=== PATIENT | female | born 2000 | race Caucasian/White ===

== ENCOUNTER 2024-07-14 12:20 | Inpatient (IN) | payer BC, SELFPAY ==
[2024-07-14] VITALS (14 sets, daily range): BP systolic 113–174; BP diastolic 74–122; BMI 28.7; BMI 29.3
[2024-07-14 08:42] LABS: Glucose - Point of Care 596 mg/dl (70-99)
--- NOTE | 2024-07-14 09:10 | ED.GENMED ---
History of Present Illness
General
Chief Complaint: Blood Sugar Problem
Source: patient
Exam Limitations: none
Time Seen by Provider: 07/14/24 08:52
History of Present Illness
History of Present Illness:
24yoF with a history of type 1 diabetes with insulin pump in place presenting with her father for evaluation of hyperglycemia. Her glucose levels have been reading high since yesterday evening after eating dinner. She has given herself several
boluses of insulin but her glucose readings continue to be high. She started to have vomiting this morning and has had numerous episodes. She also had an episode of dizziness while in the bathroom. She had a small amount of ketones in her urine
this morning. She denies any fevers, recent illness, or dietary changes. Patient follows with [facility]. She was diagnosed with diabetes at the age of 10.
Past History
Past History
ED Past Medical History: IDDM
ED Past Surgical History: None
Patient has exhibited threatening behavior?: No
Social History
Tobacco: Non-smoker
Alcohol: None
Drug: None
Personal: Single
Living: with family
Employment: Other
Family History
Family History: Other
Phy Exam
General Physical Exam
General Presentation: mild distress
General Skin: warm and dry
General Habitus: normal
General Mental: alert
ENT Exam
ENT Exam: normocephalic
Cardiovascular Exam
Cardiovascular Exam: no murmur and tachycardia
Pulmonary Exam
Pulmonary Exam: lungs clear, no respiratory distress, no rales, no crackles and no rhonchi
Neurological Exam
Neurological Exam: alert
Kristie Coma Scale
Eye Opening: Spontaneous
Verbal Response: Oriented
Motor Response: Obeys Commands
GCS Total Score: 15
Skin Exam
Skin Exam: normal color and warm/dry
Psychiatric Exam
Psychiatric Exam: normal mood/affect
Course
Orders/Labs/Results
Orders:
Orders
07/14/24 08:57
Cardiac Monitoring- Treatment ONCE
Ondansetron Injectable [Zofran] 4 mg IV NOW STA
07/14/24 08:58
Electrocardiogram (*1) Urgent
Reason for Study: QTc Monitoring
EKG- Treatment ONCE
0.9% Sodium Chloride 1000 ml [Nss] 2,000 ml IV BOLUS
Test Result ONCE
07/14/24 09:12
Cardiac Monitoring- Treatment ONCE
07/14/24 09:22
B-Hydroxybutyrate Urgent
Complete Blood Count/With Diff Urgent
Comprehensive Metabolic Panel Urgent
Glycohemoglobin (HgbA1c) Urgent
HCG, Serum Qualitative Screen Urgent
Lipase Urgent
Magnesium Urgent
Venous Blood Gas Urgent
%Oxygen/Room Air: room air
07/14/24 09:29
Urinalysis Reflex To Culture Urgent
Date Specimen was Collected: 07/14/24
Time Specimen was Collected: 09:25
Urine Microscopic Reflex Cult Urgent
07/14/24 10:02
Bedside Glucose- Treatment Q1H
IV Insert/Care/Rem.- Treatment PRN
07/14/24 10:21
Diabetes Management by Nurse Practitioner Routine
Consulting Provider: Julieta Pope
Was provider already notified?: Yes
Reason for Consult: Insulin Management
07/14/24 10:22
0.9% Sodium Chloride 1000 ml [Nss] 1,000 ml IV BOLUS
07/14/24 10:34
Reg Insulin 100 Units/100 ml [Novolin R Insulin Infusion] 100 units in 100 ml IV NOW
07/14/24 11:00
KCl 20 Meq/0.9%Sodchl 1000 ml [NSS with KCL 20 MEQ] 20 meq in 1,000 ml IV 250 mls/hr
07/14/24 12:03
Admit/Transfer Patient As Directed
Co-Sign Provider:
Level of Care: Inpatient admission
Assign to:: ICU
Physician / Group: Hospitalists
Diagnosis: DKA
Reason for Hospitalization: DKA
Expected length of stay greater than two midnights?: Yes
ELOS- Estimated Length of Stay in days: 3
I certify the patient meets the requirements for IP care: Yes
PRN Pain Medication Management As Directed
May give lesser potent ordered pain med per pt: Yes
preference::
Protocol:: Medication orders for pain may be administered in a
manner that supports deferring to patient preference
when the pt is:
- Requesting an ordered lesser potent pain medication.
Least to most potent pain medications are defined
as: acetaminophen < NSAID < tramadol < opioids
(morphine, oxycodone, hydromorphone).
- Requesting a lesser dose of the same medication IF
ORDERED.
- Requesting a less intrusive route of administration
if both routes are prescribed by the provider (PO <
IV).
07/14/24 12:05
Code Status As Directed
Resuscitation Status: Full Code
07/14/24 12:30
Basic Metabolic Panel Q2H
07/14/24 12:58
Activity As Directed
Activity Level: Ambulate
Bedside Glucose Monitoring As Directed
Frequency: Q1H
Intake/ Output As Directed
Frequency: Per unit guidelines
Notify MD As Directed
Notify physician if: Nurse to contact provider when glucose reaches 250 to obtain orders for D5 0.45 NaCl
Vital Signs As Directed
Frequency: Per unit guidelines
DX Deep Vein Thrombosis Video Routine
07/14/24 18:00
Enoxaparin Sodium [Lovenox] 40 mg SC QPM
Abnormal Lab Results
07/14/24 07/14/24 07/14/24
08:39 09:22 09:29
WBC 14.4 H 10^3/uL
(4.8-10.8)
Abs Immat Gran (auto) 0.1 H 10^3/uL
(0-0.05)
Absolute Neuts (auto) 12.0 H 10^3/uL
(1.4-6.5)
Neutrophils % 83.1 H %
(42.2-75.2)
Lymphocytes % 11.4 L %
(20.5-51.1)
VBG pCO2 32 L mmHg
(35-48)
VBG pO2 148 H mmHg
(30-50)
VBG HCO3 17.3 L mmol/L
(22-27)
Sodium 132 L mmol/L
(135-145)
Chloride 96 L mmol/L
(98-107)
Carbon Dioxide 16 L mmol/L
(22-30)
BUN 18 H mg/dl
(7-17)
Glucose 651 H* mg/dl
(70-99)
Hemoglobin A1c 7.7 H %
(4.0-5.6)
Total Bilirubin 1.5 H mg/dl
(0.2-1.3)
Urine Ketones 1+ A
(Negative)
Ur Occult Blood Reflex 4+ A
(Negative)
Leukocyte Esterase Rfl Trace A
(Negative)
Urine RBC 50-60 A /HPF
(0-2)
Urine Bacteria (Reflex) Few A
(Negative)
Urine Glucose 3+ A
(Negative)
B-Hydroxybutyrate 2.20 H mmol/L
(0.02-0.27)
POC Glucose 596 H* mg/dl
(70-99)
07/14/24 07/14/24
10:58 12:15
WBC
Abs Immat Gran (auto)
Absolute Neuts (auto)
Neutrophils %
Lymphocytes %
VBG pCO2
VBG pO2
VBG HCO3
Sodium
Chloride
Carbon Dioxide
BUN
Glucose
Hemoglobin A1c
Total Bilirubin
Urine Ketones
Ur Occult Blood Reflex
Leukocyte Esterase Rfl
Urine RBC
Urine Bacteria (Reflex)
Urine Glucose
B-Hydroxybutyrate
POC Glucose 483 H* mg/dl 281 H mg/dl
(70-99) (70-99)
07/14/24 09:22
07/14/24 10:15
Vital Signs
Initial and Last Documented VS:
Initial Vital Signs
Temp Pulse Resp BP Pulse Ox
98.1 F 152 18 174/122 97
07/14/24 08:39 07/14/24 08:39 07/14/24 08:39 07/14/24 08:39 07/14/24 08:39
Last Documented Vital Signs
Temp Pulse Resp BP Pulse Ox
98.4 F 117 17 120/74 97
07/14/24 15:24 07/14/24 13:45 07/14/24 13:45 07/14/24 13:45 07/14/24 13:59
MDM/Problems Addressed
Differential Diagnosis Includes:
24yoF here with elevated blood sugar. Hx of T1DM. Glucose reading high since last night despite giving herself multiple boluses. Started with vomiting this morning. She is tachycardic to 152 in triage and hypertensive. She is non-toxic appearing.
Differential diagnosis includes but is not limited to: DKA, HHS, hyperglycemia, dehydration, electrolyte abnormality, CHALINO
Initial ED plan: Check abdominal labs, VBG, beta hydroxybutyrate, magnesium, HCG, and EKG. 2L IV NS and IV Zofran ordered.
*EKG
Interpreted by ED Provider?: Yes
EKG Intrepretation Date: 07/14/24
Heart Rate: 129
Rate: tachycardiac
Rhythm: sinus
[place]: normal axis
Interval: normal interval (QTc 418)
QRS Pattern: normal QRS
Ischemia: no ischemia
*Critical Care Note
Total Time (30-74mins, 75-104mins- exclusive of procedures): 35
Update Note
Update Note:
Labs reveal a leukocytosis with a white count of 14.4. Glucose 651. Bicarb 16, venous pH normal. Urine and serum ketones are elevated. Patient meeting criteria for DKA. IV insulin drip ordered per DKA protocol and she was admitted for further
evaluation management.
ED Attending Note
-
Portions of this chart may have been created with voice recognition software.� Occasional wrong word or��sound alike� substitutions may have occurred due to the inherent limitations of voice recognition software.
Discharge Plan
Departure
Patient Disposition: Admit
Date of Disposition: 07/14/24
Time of Disposition: 10:13
Presentation/result/management discussed w/ accepting MD/DO: Hospitalist
Discharge Problem:
DKA (diabetic ketoacidoses)
Interventions
Interventions:
*Risk Screen - Suicide Last Done: 07/14/24 08:39
*General Assessment Last Done: 07/14/24 08:39
*Neglect/Abuse Screening Last Done: 07/14/24 08:39
ED- Fall Risk Assessment Last Done: 07/14/24 13:31
*ED COVID-19 Vaccine History Last Done: 07/14/24 13:31
*Nursing Disposition Last Done: 07/14/24 13:31
ED- Neurological Assessment Last Done: 07/14/24 09:20
Discharge Date and Time
Discharge Date/Time: 07/14/24 13:32
[2024-07-14] MEDS: NSS 2000 IV (09:28)
[2024-07-14 09:32] LABS: % Basophils 0.5 % (0-2); % Eosinophils 0.2 % (0-6); % Immature Granulocytes 0.4 % (0-0.5); % Lymphocytes 11.4 % (20.5-51.1); % Monocytes 4.4 % (1.7-9.3); % Neutrophils 83.1 % (42.2-75.2); Absolute Basophils 0.1 10^3/uL (0-0.2); Absolute Immature Granulocytes 0.1 10^3/uL (0-0.05); Absolute Lymphocytes 1.6 10^3/uL (1.2-3.4); Absolute Monocytes 0.6 10^3/uL (0.1-0.6); Hematocrit 43.1 % (37.0-47.0); Hemoglobin 14.4 g/dL (12.0-16.0); Mean Corp Hgb Conc. 33.4 g/dL (33.0-37.0); Mean Corpuscular Hgb 29.7 pg (27.0-31.0); Mean Corpuscular Volume 88.9 fL (81.0-99.0); Mean Platelet Volume 9.6 fL (7.4-10.4); Nucleated Red Blood Cells % 0 %; Platelet Count 334 10^3/uL (130-400); Red Blood Cell Count 4.85 10^6/uL (4.20-5.40); Red Cell Dist. Width 11.8 % (11.5-14.5); White Blood Cell Count 14.4 10^3/uL (4.8-10.8)
[2024-07-14 09:34] LABS: Venous Blood Gas B.E. -7.3 mmol/L (-4 to +4); Venous Blood Gas HCO3 17.3 mmol/L (22-27); Venous Blood Gas O2 Sat % 99.9 %; Venous Blood Gas pCO2 32 mmHg (35-48); Venous Blood Gas pH 7.34 (7.32-7.43); Venous Blood Gas pO2 148 mmHg (30-50)
[2024-07-14 09:41] LABS: HCG, Serum Qualitative Screen Negative
[2024-07-14] MEDS: ZOFRAN 4 MG IV (09:43)
[2024-07-14 09:51] LABS: ALT (SGPT) 16 U/L (0-35); AST (SGOT) 17 U/L (14-36); Albumin 4.8 g/dl (3.5-5.0); Alkaline Phosphatase 86 U/L (38-126); Blood Urea Nitrogen 18 mg/dl (7-17); Calcium 9.6 mg/dl (8.4-10.2); Carbon Dioxide 16 mmol/L (22-30); Chloride 96 mmol/L (98-107); Estimated Creatinine Clearance 81 ml/min; Lipase 118 U/L (23-300); Magnesium 1.8 mg/dl (1.6-2.3); Potassium 4.7 mmol/L (3.5-5.1); Sodium 132 mmol/L (135-145); Total Bilirubin 1.5 mg/dl (0.2-1.3); Total Protein 7.8 g/dl (6.3-8.2); eGFR > 60.00
[2024-07-14 10:01] LABS: Glucose 651 mg/dl (70-99)
[2024-07-14 10:23] LABS: Urine Albumin Trace (Neg - Trace); Urine Bilirubin Negative (Negative); Urine Character Slightly Cloudy (Clear); Urine Color Straw; Urine Glucose 3+ (Negative); Urine Ketone 1+ (Negative); Urine Leukocyte Trace (Negative); Urine Nitrite Negative (Negative); Urine Occult Blood 4+ (Negative); Urine Urobilinogen Negative (Neg - 1+)
[2024-07-14 10:54] LABS: Urine Bacteria Few (Negative); Urine Red Blood Cell 50-60 /HPF (0-2); Urine White Cell 0-2 /HPF (0-5)
[2024-07-14] MEDS: NOVOLIN R INSULIN INFUSION 100 IV ×2 (10:58→12:24)
[2024-07-14 10:59] LABS: Glucose - Point of Care 483 mg/dl (70-99)
--- NOTE | 2024-07-14 11:21 | HPS.HSE ---
Family Physician
-
Family Physician: Paras Ybarra MD
Chief Complaint
-
Hyperglycemia
History of Present Illness
Ms. Jossy Pope is a 24yoF pmh type 1 DM, vitiligo, PCOS, endometriosis admitted for hyperglycemia. Her glucose levels were elevated after dinner last night. She took several insulin boluses of 10u each, but her glucose has remained high. It was 444
this morning by fingerstick. She developed N/V/dizziness. Did an [place] urine dipstick positive for ketones. After which, her glucose juan alberto to 584. Pt reports soreness, skin tightness, and polyuria. HbA1c in May was 7.9.
Pt treated for a presumed UTI for the past three days. Pt endorsed dysuria, increased urinary frequency, foul odor, denies hematuria. Pt treated based on sx, not on urinalysis.
Pt has PTSD/anxiety regarding IV's and blood draws.
Medical History
Past Medical History
Past Medical History: Reports IDDM, Psychiatric (PTSD/anxiety) and Other (vitiligo, PCOS, endometriosis)
Past Surgical History: Reports None
Social History
Tobacco: Non-smoker
Alcohol: Occasional (1 drink per week)
Drug: None
Family History
Family History: Diabetes (type 2)
Allergies / Home Medications
Allergies reflects when Allergies were last updated in [employer].
Home Medications with original date entered in [employer]
Allergy/Medication List:
Allergies
Allergy/AdvReac Type Severity Reaction Status Date / Time
No Known Allergies Allergy Verified 07/14/24 08:38
Home Medications
Insulin Pump [Patient's Own Insulin Pump:] 0 ea SC . PROGRAMED 07/22/19
Lactobac no.2-Bifidobac no.1-S. thermo 112.5 billion cell capsule (Visbiome) 1 cap PO DAILY 07/14/24
levonorgestrel 0.15 mg-ethinyl estradiol 30 mcg tablets,3 mos pack(91) 1 tab PO DAILY 07/14/24
metronidazole 500 mg tablet 500 mg PO BID 07/14/24
Review of Systems
-
History Source: Patient and Family
Constitutional: Reports No Symptoms
EENT: Reports No Symptoms
Respiratory: Reports No Symptoms
Cardiac: Reports No Symptoms
Abdomen/GI: Reports Nausea and Vomiting
: Reports Dysuria and Frequency
Musculoskeletal: Reports No Symptoms
Skin: Reports Other (tightness)
Neurological: Reports Dizzy
Endocrine: Reports Polyuria
Psych: Reports Anxiety
Physical Exam
Vital Signs
Vital Signs
Temp Pulse Resp BP Pulse Ox
98.1 F 125 22 121/96 97
07/14/24 08:39 07/14/24 10:45 07/14/24 10:45 07/14/24 10:00 07/14/24 10:45
Physical Exam
General: Well Developed, Well Nourished and Conversant
HEENT: NormoCephalic, Anicteric and Atraumatic
Respiratory: Clear
Cardiac: S1/S2, Regular Rhythm and Tachycardia
GI: Soft, Non Tender, Non Distended and Normal Bowel Sounds
Genito-urinary: No costovertebral tender
Musculoskeletal: No Clubbing, No Cyanosis and No Edema
Skin: Warm, Dry and Lesions (scratch on R ant chest wall, from taking off fake nails)
Neuro: AO x 3
Psych: Anxious
Laboratory Results
-
07/14/24 09:22
Laboratory Results
Total Bilirubin 1.5 mg/dl (0.2-1.3) H 07/14/24 09:22
AST 17 U/L (14-36) 07/14/24 09:22
ALT 16 U/L (0-35) 07/14/24 09:22
Alkaline Phosphatase 86 U/L (38-126) 07/14/24 09:22
Lipase 118 U/L (23-300) 07/14/24 09:22
Impression/Plan
-
IMPRESSION:
DKA
Type 1 DM
Vitiligo
PCOS
Endometriosis
PLAN:
DKA
Type 1 DM
- insulin drip
- q2h bmp
- q1h fingerstick glucose
- NPO
- sodium bicarbonate
- potassium repletion
- AG 20
PCOS
Endometriosis
- hold OCP until pt able to tolerate PO
Vitiligo
- stable
PTSD/Anxiety
- regarding blood draws and IV insertions
UTI
- urinalysis - ketonuria, glucosuria, UTI
- hold flagyl since NPO
- start rocephin iv
Diet: NPO
DVT ppx: lovenox
Code status: FULL CODE
--- NOTE | 2024-07-14 11:24 | PN.DE.MGMTRT ---
Insulin Management
- -
07/14/2024: Diabetes management Consult
24 year old female, w/PMH: Vitiligo, PCOS, endometriosis, PTSD, Anxiety and T1DM, was diagnosed with diabetes at the age of 10, states this is her 1st episode of DKA since dx with diabetes. Routinely follows with [facility] Dr. Crowley.
Pt presented to the ED with her father for evaluation of hyperglycemia. Uses Omnipod pump with NovoLog insulin. Was started on Wegovy one and half years ago for weight management and PCOS. She uses a Dexcom G6 for glucose monitoring at home. States
her glucose levels started trending up yesterday evening after eating dinner. She changed her POD yesterday evening and administered several boluses of insulin but her glucose readings continued to be high. She started to have vomiting this morning
and has had numerous episodes, associated with small amounts of ketones in her urine this morning. She denies any fevers, recent illness, or dietary changes.
Pt is awake, alert, oriented, sitting up in bed, offers no complaints. Mom- Renu (Nurse) and Dad- Will at bedside, pleasant and involved with pt's care.
Pt states she is dealing with a great deal of stress in her life.
She is noted for DKA, AG = 20, Glucose on admission was 651(V). Cr 0.9, No current A1C, last A1C was 7.9% in May 2024.
Pt has been started on DKA protocol. Current glucose 281. Will cont to follow and assess for readiness to transition off the drip when GAP has closed.
Update A1C, will add to AM labs.
Diabetes History
- -
Type of Diabetes: 1
Pre-Admission Diabetes Regimen
07/14/24
09:22
Creatinine 0.9
Insulin Pump Settings
IP Diabetes Regimen
07/14/24 07/14/24 07/14/24
08:39 09:22 10:58
Glucose 651 H*
POC Glucose 596 H* 483 H*
Patient Education
[2024-07-14 12:17] LABS: Glucose - Point of Care 281 mg/dl (70-99)
[2024-07-14] MEDS: NSS with KCL 20 MEQ 1000 IV (12:17)
[2024-07-14] MEDS: NSS 1000 IV ×3 (12:25→23:36)
[2024-07-14 12:52] LABS: Blood Urea Nitrogen 14 mg/dl (7-17); Calcium 8.8 mg/dl (8.4-10.2); Carbon Dioxide 20 mmol/L (22-30); Chloride 107 mmol/L (98-107); Estimated Creatinine Clearance 92 ml/min; Glucose 304 mg/dl (70-99); Potassium 4.5 mmol/L (3.5-5.1); Sodium 139 mmol/L (135-145); eGFR > 60.00
--- NOTE | 2024-07-14 12:55 | W.PN.UPDATE ---
Update Note
Progress Note Update
I personally performed a history and physical exam of the patient and discussed management with the resident. I reviewed the resident's note and agree with the documented findings and plan of care HPI/CC.
24-year-old female who presents with a chief complaint of hyperglycemia. She has had elevated blood glucoses over the last 24 hours. She is also had fatigue as if she did an extreme workout (as per her words). This morning she had some vomiting.
She uses an insulin pump but has required multiple extra boluses of insulin over the last 24 hours.
Gen: NAD, AAOx3.
Eyes: EOMI, PERRLA, no scleral icterus.
Neck: supple.
CV: tachycardia, +S1/S2, no m/r/g.
Resp: CTAB, no rales, wheezes, or rhonchi.
Abd: +BS, soft, NT, ND
Skin: No rashes.
Neuro: CN 2-12 intact, non-focal.
Psych: Normal mood and affect.
DKA:
-possibly due to UTI
-AG 20
-start insulin gtt
-3L NS bolus followed by high flow rate maintenance fluids
-BMP Q4H
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
-NPO for now
Sepsis due to UTI:
-IVFs
-Rocephin
-follow BCxs/UCx
FULL/Lovenox
Total critical care time spent = 37 min
--- NOTE | 2024-07-14 13:30 | PTCARENOTE ---
Received pt from the ED with parents present, 0.9nss bolus infusing via right [id number] protective catheter, Insulin @ 3.3units/hr via same site. Lungs CTA. C/O hunger and asking if she is allowed to eat. SHe understands orders will be checked. She
understands the plan of care regarding serial BMP's to assess for anion gap. Parents were also informed of the plan of care.
[2024-07-14 13:43] LABS: Glucose - Point of Care 190 mg/dl (70-99)
--- NOTE | 2024-07-14 13:50 | CON.INTV ---
Addendum entered and electronically signed by Nuzhat Amaya DO 07/14/24 15:19:
Transferred to IMU, we will sign off at this time.
Please call with questions
Original Note:
Consultation
Consultation Request
Date/Time Consultation Requested: 07/14/24
Date/Time Consultation Performed: 07/14/24
Performing Provider: Jose Luis
Reason for Consultation: ICU
Medical History
-
History of Present Illness:
Patient is a 24 year old F with past history of type 1 DM, vitiligo, PCOS, endometriosis admitted for hyperglycemia. Glucose levels were elevated after dinner day [employer]. She took 4 doses of 10 units of insulin without benefit. It was reportedly 444
day of admission. She developed N/V/dizziness. Did an OTC urine dipstick positive for ketones. After which, her glucose juan alberto to 584. Pt reports soreness, skin tightness, and polyuria. HbA1c in May was 7.9.
Pt treated for a presumed UTI for the past three days. Pt endorsed dysuria, increased urinary frequency, foul odor.
Has a past history of UTI, E. Coli.
Admitted to ICU for DKA management on insulin gtt.
Past Medical History
Past Medical History: Other (see list below)
Social History
Tobacco: Non-smoker
Alcohol: None
Drug: None
Family History
Family History: Reviewed & Not Pertinent
Allergies / Home Medications
Allergies
Allergy/AdvReac Type Severity Reaction Status Date / Time
No Known Allergies Allergy Verified 07/14/24 08:38
Home Medications
�Medication �Instructions �Recorded �Confirmed �Last Taken �Type
Insulin Pump [Patient's Own 0 ea SC . PROGRAMED 07/22/19 07/14/24 Unknown History
Insulin Pump:]
Lactobac no.2-Bifidobac no.1-S. 1 cap PO DAILY 07/14/24 07/14/24 Unknown History
thermo 112.5 billion cell capsule
(Visbiome)
levonorgestrel 0.15 mg-ethinyl 1 tab PO DAILY 07/14/24 07/14/24 07/14/24 History
estradiol 30 mcg tablets,3 mos
pack(91)
metronidazole 500 mg tablet 500 mg PO BID 07/14/24 07/14/24 07/14/24 History
Review of Systems
-
History Source: Patient
All other systems: Negative unless noted
Vitals / Labs / Diagnostic Testing
Vital Signs
Temp Pulse Resp BP Pulse Ox
98.1 F 121 19 121/96 97
07/14/24 08:39 07/14/24 13:15 07/14/24 13:15 07/14/24 10:00 07/14/24 13:00
Lab Data
07/14/24 09:22
Diagnostic Testing:
Physical Exam
-
HEENT: Normocephalic, Anicteric and Moist Mucous Membranes
Cardiovascular: S1/S2 and Regular Rhythm
Respiratory: Clear and Non-Labored Respirations
GI: Soft, Non Distended and Non Tender
Neurology: Awake, Alert, Oriented and No Motor Deficits
Skin: Warm, Dry and Good Color
General: Comfortable and Other (NAD)
Assessment
-
Patient is a 24 year old F with past history of type 1 DM on insulin pump, vitiligo, PCOS, endometriosis admitted for hyperglycemia. Glucose levels were elevated after dinner day [employer]. She took 4 doses of 10 units of insulin without benefit. It was
reportedly 444 day of admission. She developed N/V/dizziness. Pt treated for a presumed UTI for the past three days. Has a past history of UTI, E. Coli. She has never been admitted for DKA in past, she is admitted to ICU for insulin gtt.
DKA
AGMA
UTI
Conditions present [employer]
H/o PNA 01/18/2019
H/o pyelonephritis
E coli bacteremia/UTI
Diabetes with insulin pump
History of vitiligo
History of asthma
PTSD/anxiety
PCOS/endometriosis
Alcohol: Occasional (1 drink per week)
Plan
DKA, admitting BS elevated >500, AG 20 now 12
Started on insulin drip, can wean today following protocol, start D5 IVFs
Can transition back to home insulin pump
Consult diabetic nurse for insulin recommendations
Can restart diet once able to bridge
H/o poorly controlled diabetes, hopeful transition to home meds
HbA1c 7.7
Admits triggers include UTI
Diet transition following DKA protocol
GI ppx if indicated
Hemodynamically stable, not requiring pressors.
No prior h/o cardiac disease
Oxygen needs: Stable on RA
No prior h/o pulmonary disease
Creat at baseline, follow UO
Acid/base status: AGMA 2/2 DKA, follow until AG <12
UTI history, urine culture pending
On CTX IV, can complete PO course when ready for discharge
Follow fever trend, WBC count.
DVT ppx SCDs
Given rapid improvement on gtt, can transition to pump again
Discharge planning once able to achieve control on home regiment
Diagnostic Data
Chest X-Ray: 01/24/19- Improved aeration of both lower lungs with findings suggestion of residual atelectasis on the right and probable residual mild bibasilar pneumonia.
Mild cardiomegaly. Stable.
CT Scan: 07/22/19 AP - 1. Mild amount of MEDULLARY NEPHROCALCINOSIS in both kidneys which has increased since 01/17/2019.
2. No CT evidence for ureteral calculus or hydroureteronephrosis.
Echo:
PFT's:
Reports and relevant images were personally reviewed.
Critical Care time 52 mins -- The patient is admitted for acute critical illness for the treatment of vital organ failure and/or prevention of further life-threatening conditions. Total care includes time spent in review of history, physical exam,
medications, hemodynamic/ventilator parameters, laboratory data, imaging and discussion with house staff, pharmacy, respiratory therapy, cardiac care unit nurse, and nursing.
[2024-07-14 14:05] LABS: Glycohemoglobin (HgbA1c) 7.7 % (4.0-5.6)
[2024-07-14] MEDS: D5/0.45%NSS with KCL 20 MEQ 1000 IV (14:16)
[2024-07-14] MEDS: ROCEPHIN 1000 MG IV (14:17)
[2024-07-14] MEDS: STERILE WATER FOR INJECTION 10 ML IV (14:17)
[2024-07-14 14:41] LABS: Glucose - Point of Care 172 mg/dl (70-99)
[2024-07-14 14:57] LABS: Blood Urea Nitrogen 12 mg/dl (7-17); Carbon Dioxide 19 mmol/L (22-30); Chloride 110 mmol/L (98-107); Estimated Creatinine Clearance 106 ml/min; Glucose 188 mg/dl (70-99); Potassium 4.2 mmol/L (3.5-5.1); Sodium 138 mmol/L (135-145); eGFR > 60.00
[2024-07-14] MEDS: NON-FORMULARY ITEM 1 UNIT PO (14:59)
[2024-07-14] MEDS: NON-FORMULARY ITEM 1 TAB PO (14:59)
--- NOTE | 2024-07-14 15:17 | PTCARENOTE ---
Elaine Guillen notified of pt's anxiety when obtaining Blood cultures and that 1 set was obtained. He stated 1 set is ok and that he downgraded her to IMU.
[2024-07-14 15:41] LABS: Glucose - Point of Care 195 mg/dl (70-99)
[2024-07-14 16:40] LABS: Glucose - Point of Care 174 mg/dl (70-99)
--- NOTE | 2024-07-14 17:29 | PTCARENOTE ---
Pt AAOx3. Denies pain or nausea. Insulin gtt d/c'd at 1530. Pt placed her own insulin pump at that time. Per pt, placed on Smart PurpleTeal with carb ratio 1-4 and blood sugar 1-50. IVF changed to NSS per order. Ambulates to bathroom with steady
gait. Pt and her mother were updated at bedside on meds and labs.
[2024-07-14 21:20] LABS: Glucose - Point of Care 195 mg/dl (70-99)
--- NOTE | 2024-07-14 23:28 | PTCARENOTE ---
Assumed care of pt at 1900. Pt is A/O x4, pleasant and cooperative with care. Pt remains off insulin drip, currently on her own insulin pump. At start of shift pt rang call lynne with concerns that her blood sugar was trending up, had decided to put
herself on a basal rate of insulin to bring blood sugar back down so she could avoid going on insulin drip again. HS Accuchek done, 195, pt's blood sugar per her own device was reading 180. Upon checking back in with patient she decided to continue
with a basal rate of insulin instead of the Smart IQ, stating that the Smart IQ 'doesn't seem to be working right'. Pt and her mother are well-versed in the use of her insulin pump and blood sugar monitoring and she has been keeping nursing staff up
to date. SR 90s/ST low 100s on monitor. See nursing shift assessment flowsheet for full physical assessment details. Pt is currently IMU level of care. Mother in room, staying the night.
[2024-07-15] VITALS (9 sets, daily range): BP systolic 121–151; BP diastolic 81–96
[2024-07-15 05:55] LABS: % Basophils 0.5 % (0-2); % Eosinophils 1.7 % (0-6); % Immature Granulocytes 0.3 % (0-0.5); % Lymphocytes 38.8 % (20.5-51.1); % Monocytes 6.3 % (1.7-9.3); % Neutrophils 52.4 % (42.2-75.2); Absolute Eosinophils 0.2 10^3/uL (0-0.7); Absolute Lymphocytes 3.3 10^3/uL (1.2-3.4); Absolute Monocytes 0.5 10^3/uL (0.1-0.6); Absolute Neutrophils 4.5 10^3/uL (1.4-6.5); Hematocrit 37.9 % (37.0-47.0); Hemoglobin 12.5 g/dL (12.0-16.0); Mean Corpuscular Hgb 29.3 pg (27.0-31.0); Mean Corpuscular Volume 88.8 fL (81.0-99.0); Mean Platelet Volume 9.4 fL (7.4-10.4); Nucleated Red Blood Cells % 0 %; Platelet Count 280 10^3/uL (130-400); Red Blood Cell Count 4.27 10^6/uL (4.20-5.40); Red Cell Dist. Width 11.9 % (11.5-14.5); White Blood Cell Count 8.6 10^3/uL (4.8-10.8)
[2024-07-15] MEDS: NSS IV (06:07)
[2024-07-15 06:24] LABS: Blood Urea Nitrogen 11 mg/dl (7-17); Calcium 8.6 mg/dl (8.4-10.2); Carbon Dioxide 21 mmol/L (22-30); Chloride 106 mmol/L (98-107); Estimated Creatinine Clearance 125 ml/min; Glucose 107 mg/dl (70-99); Potassium 4.2 mmol/L (3.5-5.1); Sodium 134 mmol/L (135-145); eGFR > 60.00
[2024-07-15 07:57] LABS: Glucose - Point of Care 129 mg/dl (70-99)
--- NOTE | 2024-07-15 08:47 | W.PN.HOSP.TC ---
Today's Communication/Plan
-
.
Assessment / Plan
Assessment / Plan
IMPRESSION:
DKA
Type 1 DM
Vitiligo
PCOS
Endometriosis
PLAN:
DKA
Type 1 DM
- DKA resolved
- insulin pump
- sodium bicarbonate
- potassium repletion
UTI
- urinalysis - ketonuria, glucosuria, UTI
- rocephin iv
- ucx, bcx pending
PCOS
Endometriosis
- cont home OCP
Vitiligo
- stable
PTSD/Anxiety
- regarding blood draws and IV insertions
Diet: diabetic
DVT ppx: lovenox
Code status: FULL CODE
Anticipated Discharge: 24 - 48 hours
Subjective/Interval History
-
Date of Service: July 15, 2024
Ms. Jossy Pope is a 24yoF pmh type 1 DM, vitiligo, PCOS, endometriosis admitted for hyperglycemia. Transferred to IMU.
Objective Data
-
Labs:
Laboratory Results
07/15/24
05:33
WBC 8.6
Hgb 12.5
Hct 37.9
Plt Count 280
Sodium 134 L
Potassium 4.2
Chloride 106
Carbon Dioxide 21 L
BUN 11
Creatinine 0.6
Glucose 107 H
Calcium 8.6
Vital Signs:
Vital Signs
Temp Pulse Resp BP Pulse Ox
98.1 F 73 15 125/89 97
07/15/24 07:19 07/15/24 05:00 07/15/24 05:00 07/15/24 04:00 07/15/24 05:00
I&O
07/14/24 07/15/24 07/16/24
06:59 06:59 06:59
Intake Total 2539.3 / 2538.3
Output Total 400 / 400
Balance 2138.3 / 2138.3
Review of Systems
-
History Source: Patient
Constitutional: Reports No Symptoms
EENT: Reports No Symptoms Reported
Respiratory: Reports No Symptoms
Cardiac: Reports No Symptoms
Abdomen/GI: Reports No Symptoms
Genitourinary: Reports No Symptoms
Musculoskeletal: Reports No Symptoms
Skin: Reports No Symptoms
Neuro: Reports No Symptoms
Endocrine: Reports No Symptoms
Physical Exam
-
General: Well Developed, Well Nourished and No Apparent Distress
HEENT: Normocephalic, Atraumatic and Anicteric
Respiratory: Clear to Auscultation
Cardiac: Regular Rhythm and S1/S2
GI: Soft, Nontender, Nondistended and Normal Bowel Sounds
Genito-urinary: No Costovertebral Tender
Musculoskeletal: No Clubbing, No Cyanosis and No Edema
Skin: Warm and Dry
Neuro: AO x 3
Psych: Calm
[2024-07-15] MEDS: NON-FORMULARY ITEM 1 UNIT PO (10:17)
[2024-07-15] MEDS: NON-FORMULARY ITEM 1 TAB PO (10:17)
[2024-07-15 11:51] LABS: Glucose - Point of Care 202 mg/dl (70-99)
--- NOTE | 2024-07-15 11:52 | W.PN.UPDATE ---
Update Note
Progress Note Update
I saw and evaluated the patient. I reviewed the resident�s note and agree with findings and plan as documented in the resident�s note.
Gen: NAD, AAOx3.
Eyes: EOMI, PERRLA, no scleral icterus.
Neck: supple.
CV: RRR, +S1/S2, no m/r/g.
Resp: remains CTAB, no rales, wheezes, or rhonchi.
Skin: No rashes.
Neuro: remains CN 2-12 intact, non-focal.
Psych: Normal mood and affect.
DKA:
-possibly due to UTI in addition to insulin pump malfunction
-s/p 3L NS bolus followed by high flow rate maintenance fluids
-AG 20, now closed with insulin gtt, insulin pump restarted
Sepsis due to UTI:
-stop IVFs
-Rocephin
-follow BCxs/UCx
Pt's mother updated at bedside.
FULL/Lovenox
[2024-07-15] MEDS: STERILE WATER FOR INJECTION 10 ML IV (14:23)
[2024-07-15] MEDS: ROCEPHIN 1000 MG IV (14:23)
--- NOTE | 2024-07-15 14:31 | PTCARENOTE ---
Pt managing own insulin pump. IVF d/c per order. Downgraded to medsurg. No available beds at this time.
[2024-07-15 17:38] LABS: Glucose - Point of Care 207 mg/dl (70-99)
[2024-07-15 21:48] LABS: Glucose - Point of Care 170 mg/dl (70-99)
--- NOTE | 2024-07-16 00:11 | PTCARENOTE ---
Assumed care of pt at 1900. Pt is A/O x4, pleasant and cooperative with care. Independent in room. Insulin pump in place and pt controlling her insulin administration. See nursing shift assessment flowsheet for full physical assessment details.
[2024-07-16 05:27] LABS: Hematocrit 36.3 % (37.0-47.0); Hemoglobin 12.4 g/dL (12.0-16.0); Mean Corp Hgb Conc. 34.2 g/dL (33.0-37.0); Mean Corpuscular Hgb 29.7 pg (27.0-31.0); Mean Corpuscular Volume 86.8 fL (81.0-99.0); Mean Platelet Volume 9.8 fL (7.4-10.4); Platelet Count 262 10^3/uL (130-400); Red Blood Cell Count 4.18 10^6/uL (4.20-5.40); Red Cell Dist. Width 11.5 % (11.5-14.5); White Blood Cell Count 7.3 10^3/uL (4.8-10.8)
[2024-07-16 07:12] LABS: Blood Urea Nitrogen 9 mg/dl (7-17); Calcium 8.8 mg/dl (8.4-10.2); Carbon Dioxide 20 mmol/L (22-30); Chloride 105 mmol/L (98-107); Estimated Creatinine Clearance 125 ml/min; Glucose 125 mg/dl (70-99); Potassium 3.8 mmol/L (3.5-5.1); Sodium 136 mmol/L (135-145); eGFR > 60.00
--- NOTE | 2024-07-16 07:46 | W.PN.HOSP.TC ---
Today's Communication/Plan
-
dc today
Assessment / Plan
Assessment / Plan
IMPRESSION:
DKA
Type 1 DM
Vitiligo
PCOS
Endometriosis
PLAN:
DKA
Type 1 DM
- DKA resolved
- insulin pump
- sodium bicarbonate
- potassium repletion
UTI
- urinalysis - ketonuria, glucosuria, UTI
- 2 days of rocephin iv
- ucx - mixed mckenna
- blood cx: no growth at 24h
- macrobid
PCOS
Endometriosis
- cont home OCP
Vitiligo
- stable
PTSD/Anxiety
- regarding blood draws and IV insertions
Diet: diabetic
DVT ppx: lovenox
Code status: FULL CODE
Anticipated Discharge: Today
Subjective/Interval History
-
Date of Service: July 16, 2024
Ms. Jossy Pope is a 24yoF pmh type 1 DM, vitiligo, PCOS, endometriosis admitted for hyperglycemia. No acute overnight events.
Objective Data
-
Labs:
Laboratory Results
07/16/24 07/16/24
05:08 06:10
WBC 7.3
Hgb 12.4
Hct 36.3 L
Plt Count 262
Sodium Cancelled 136
Potassium Cancelled 3.8
Chloride Cancelled 105
Carbon Dioxide Cancelled 20 L
BUN Cancelled 9
Creatinine Cancelled 0.6
Glucose Cancelled 125 H
Calcium Cancelled 8.8
Vital Signs:
Vital Signs
Temp Pulse Resp BP Pulse Ox
98.3 F 91 22 128/90 97
07/16/24 07:36 07/15/24 20:59 07/15/24 14:19 07/15/24 20:56 07/15/24 20:59
I&O
07/15/24 07/16/24 07/17/24
06:59 06:59 06:59
Intake Total 2539.3 / 2539.3 480 / 480
Output Total 400 / 400
Balance 2139.3 / 2139.3 480 / 480
Review of Systems
-
History Source: Patient
Constitutional: Reports No Symptoms
EENT: Reports No Symptoms Reported
Respiratory: Reports No Symptoms
Cardiac: Reports No Symptoms
Abdomen/GI: Reports No Symptoms
Genitourinary: Reports No Symptoms
Musculoskeletal: Reports No Symptoms
Skin: Reports No Symptoms
Neuro: Reports No Symptoms
Endocrine: Reports No Symptoms
Allergy / Immunology: Reports No Symptoms
Physical Exam
-
General: Well Developed, Well Nourished and No Apparent Distress
HEENT: Normocephalic, Atraumatic and Anicteric
Respiratory: Clear to Auscultation
Cardiac: Regular Rhythm and S1/S2
GI: Soft, Nontender, Nondistended and Normal Bowel Sounds
Genito-urinary: No Costovertebral Tender
Musculoskeletal: No Clubbing, No Cyanosis and No Edema
Skin: Warm and Dry
Neuro: AO x 3
Psych: Calm
[2024-07-16 07:53] VITALS: BP 130/96
[2024-07-16] MEDS: NON-FORMULARY ITEM 1 TAB PO (07:53)
[2024-07-16] MEDS: NON-FORMULARY ITEM 1 UNIT PO (07:53)
[2024-07-16] MEDS: MACROBID 100 MG PO (07:55)
[2024-07-16 08:04] LABS: Glucose - Point of Care 154 mg/dl (70-99)
--- NOTE | 2024-07-16 08:46 | W.PN.UPDATE ---
Update Note
Progress Note Update
I saw and evaluated the patient. I reviewed the resident�s note and agree with findings and plan as documented in the resident�s note.
Pt seen and examined with nurse Bryanna Jorge present at bedside:
Gen: remains NAD, AAOx3.
Eyes: EOMI, PERRLA, no scleral icterus.
Neck: supple.
CV: remains RRR, +S1/S2, no m/r/g.
Resp: CTAB anteriorly, no rales, wheezes, or rhonchi.
Skin: No rashes.
Neuro: CN 2-12 intact, non-focal.
Psych: Normal mood and affect.
07/14/24 15:19 Blood/Venous Blood Culture - Preliminary
No Growth in 24 hours- Final report to follow
07/14/24 15:37 Urine Urine Culture - Final
DKA:
-possibly due to UTI in addition to insulin pump malfunction
-s/p 3L NS bolus followed by high flow rate maintenance fluids
-AG 20, now closed with insulin gtt, insulin pump restarted
Sepsis due to UTI:
-s/p IVFs
-has been on IV Rocephin. UCx contaminated, BCx NGTD
-transition to Macrobid to complete 10 days of abx
-recommend outpt ID eval for recurrent UTIs
FULL/Lovenox
Total time spent on d/c = 31 min. This included today's physical exam, progress note, review of laboratory and diagnostic data, preparation of discharge documents and prescriptions, and discussions about the pt's hospital course and discharge plan
with the patient and other medical i d sales involved in the patient's care.
--- NOTE | 2024-07-16 08:58 | W.DCSUMMARY ---
Discharge Summary
Discharge Data
Date of Admission: 07/14/24
Date of Discharge: 07/16/24
-
Pending Results: Yes
Additional Pending Results:
Blood culture
Hospital Course
Discharging Physician : Dr. Georgina Vasquez, Dr. Jesus Henry
Disposition : home
Primary care physician : Paras Ybarra MD
Principal Discharge diagnosis : DKA
Chronic Discharge diagnosis : type 1 DM, vitiligo, PCOS, endometriosis
Hospital Course :
Admitted 07/14 for hyperglycemia. Her glucose levels were elevated after dinner the night before admission. She took several insulin boluses of 10u each, but her glucose has remained high. It was 444 this morning by fingerstick. She developed
N/V/dizziness. Did an OTC urine dipstick positive for ketones. After which, her glucose juan alberto to 584. Pt reports soreness, skin tightness, and polyuria. HbA1c in May was 7.9. Anion gap 20. Pt treated for a presumed UTI for three days prior to
admission. Pt endorsed dysuria, increased urinary frequency, foul odor, denies hematuria. Pt treated based on sx, not on urinalysis. She was treated with an insulin drip, sodium bicarbonate, and potassium until her blood glucose was <200. Anion gap
closed to <12. Pt then treated with subcutaneous insulin from her insulin pump. Urine culture positive for mixed mckenna. Blood culture had no growth at 24h. Pt hemodynamically stable, afebrile.
Important imaging findings : n/a
Procedure findings : n/a
Discharge Plan
-
Patient Disposition: Home (Routine Discharge)
Discharge Diagnosis/Procedures: Diabetic Ketoacidosis, sepsis due to acute urinary tract infection
Condition: Good
Diet: Diabetic, Carb Controlled
Activity: No restrictions
Driving Restrictions: As prior to admission
Instructions: Diabetes and diet, Diabetic ketoacidosis - Discharge instructions
Referrals:
Paras Ybarra MD [Family Provider] - in less than 1 week
Patience Pierce MD [Active] - in one to two weeks (recurrent UTIs)
Prescriptions:
New
nitrofurantoin macrocrystal 100 mg capsule
100 mg PO BID 8 Days Qty: 16 0RF
Continued
Insulin Pump [Patient's Own Insulin Pump:] 1 UNITS Pump.Resvr
0 ea SC . PROGRAMED
Rx Instructions:
Insulin Lispro
levonorgestrel-ethinyl estrad 0.15 mg-30 mcg (91) tablets,dose pack,3 month
1 tab PO DAILY
Visbiome 112.5 billion cell Capsule
1 cap PO DAILY
Discontinued
metronidazole 500 mg Tablet
500 mg PO BID
Rx Instructions:
start on 07/11/24 for 7 days
Discharge Orders:
Discharge Patient (As Directed); Ordered 07/16/24
Ordered By: Jesus Henry
Discharge Date and Time
Discharge Date/Time: 07/16/24 09:32
Print Language: MAURITANIAN
--- NOTE | 2024-07-16 09:29 | PTCARENOTE ---
Pt AAOx3. Blood sugars controlled via pt's own insulin pump. Reviewed discharge instructions, meds and follow up visits with pt and mom. Given educations packets on DM, DKA and new antibiotic. IV d/c'd. Discharged to home with mom.
--- NOTE | 2024-07-16 10:16 | CM ---
Patient with Hx IDDM here with DKA, UTI.
Notified by nurse Bryanna that patient was already discharged today - not able to be seen by CM.
Per nurse, the patient has her own insulin pump and Dexcom, and there were no issues that would require additional home support from VN.
Per nurse her mother provided transport home today.
== END 2024-07-16 09:32 | disposition home or self-care (01) | DRG 871 ==
LOC: ICU 12:20
PROVIDERS: Physician Assistant; ADMITTING PHYSICIAN Internal Medicine; CONSULT PHYSICIAN Internal Medicine; EMERGENCY PHYSICIAN Emergency Medicine; FAMILY PHYSICIAN Family Medicine
DX: A41.9 Sepsis, unspecified organism (principal); E10.10 Type 1 diabetes mellitus with ketoacidosis without coma; N39.0 Urinary tract infection, site not specified; T85.694A Other mechanical complication of insulin pump, initial encounter; E28.2 Polycystic ovarian syndrome; F41.9 Anxiety disorder, unspecified; F43.10 Post-traumatic stress disorder, unspecified; L80 Vitiligo; N80.9 Endometriosis, unspecified; T38.3X6A Underdosing of insulin and oral hypoglycemic [antidiabetic] drugs, initial encounter
CPT/HCPCS: 80048; 80053; 81003; 81015; 82010; 82805; 82962; 83036; 83690; 83735; 84703; 85025; 85027; 87040; 87086; 93005; 96361; 96365; 96366; 96375; 99291

== ENCOUNTER 2024-09-01 22:28 | Inpatient (IN) | payer BC, SELFPAY ==
[2024-09-01 18:45] VITALS: BP 160/98
[2024-09-01 19:05] LABS: % Basophils 0.5 % (0-2); % Eosinophils 0.1 % (0-6); % Immature Granulocytes 0.4 % (0-0.5); % Lymphocytes 19.4 % (20.5-51.1); % Monocytes 4.3 % (1.7-9.3); % Neutrophils 75.3 % (42.2-75.2); Absolute Basophils 0.1 10^3/uL (0-0.2); Absolute Lymphocytes 1.9 10^3/uL (1.2-3.4); Absolute Monocytes 0.4 10^3/uL (0.1-0.6); Absolute Neutrophils 7.4 10^3/uL (1.4-6.5); Hematocrit 38.7 % (37.0-47.0); Hemoglobin 13.1 g/dL (12.0-16.0); Mean Corp Hgb Conc. 33.9 g/dL (33.0-37.0); Mean Corpuscular Hgb 29.2 pg (27.0-31.0); Mean Corpuscular Volume 86.2 fL (81.0-99.0); Mean Platelet Volume 9.7 fL (7.4-10.4); Nucleated Red Blood Cells % 0 %; Platelet Count 333 10^3/uL (130-400); Red Blood Cell Count 4.49 10^6/uL (4.20-5.40); Red Cell Dist. Width 12.2 % (11.5-14.5); White Blood Cell Count 9.9 10^3/uL (4.8-10.8)
[2024-09-01 19:34] LABS: ALT (SGPT) 16 U/L (0-35); AST (SGOT) 21 U/L (14-36); Albumin 4.1 g/dl (3.5-5.0); Alkaline Phosphatase 80 U/L (38-126); Blood Urea Nitrogen 11 mg/dl (7-17); Calcium 9.1 mg/dl (8.4-10.2); Carbon Dioxide 17 mmol/L (22-30); Chloride 95 mmol/L (98-107); Potassium 4.9 mmol/L (3.5-5.1); Sodium 126 mmol/L (135-145); Total Bilirubin 1.4 mg/dl (0.2-1.3); Total Protein 7.1 g/dl (6.3-8.2); eGFR > 60.00
[2024-09-01 19:37] LABS: HCG, Serum Qualitative Screen Negative
[2024-09-01 19:54] LABS: B-Hydroxybutyrate 0.98 mmol/L (0.02-0.27); Glucose 800 mg/dl (70-99)
[2024-09-01 20:46] VITALS: BMI 28.4
[2024-09-01 20:50] VITALS: BP 134/92
--- NOTE | 2024-09-01 20:51 | EDRN ---
Pt says her blood sugars were fine yesterday, holding steady at 250 today. Around 1059-3604 she got an alarm that her BS was rising. Pt took 10 units novolog when she got home at 1746. pt could feel her heart elevated and she felt sob so mother
brought pt to ED for evaluation. Pt vomited few times since arrival. Pt feels nauseous now. Pt feels pressure in her chest 'like a fuzzy heavy feeling.' Increased urination, four times since arrival. Pt is thirsty. No abd pain, d/c,
fever/chills/cough. Pt has generalized weakness. Pt says she was in DKA for first time last month because of UTI and her insulin pump was set to smart IQ which is supposed to work as a pancreas.
--- NOTE | 2024-09-01 21:08 | ED.GENMED ---
History of Present Illness
General
Chief Complaint: Chest Pain
Source: patient and family
Time Seen by Provider: 09/01/24 20:21
History of Present Illness
History of Present Illness:
This is a 24-year-old female who presents concern about her blood sugar. The patient today was at work when she started feel weird. Has some symptoms in her chest. Called her mom. Mom thought she sounded okay but when she got home mom states she
looks sicker than she thought and was hyperventilating. Patient states started vomiting here on arrival. Patient now still feels a little nauseous. Mom states that she put her pump on smart IQ and it does not seem to work well for her. She has
been on Wegovy and tolerating it well. The patient my assessment denies any pain. She states the chest symptoms were more of a palpitations.
Past History
Past History
ED Past Medical History: IDDM and Other (Polycystic ovarian syndrome)
ED Past Surgical History: None
Patient has exhibited threatening behavior?: No
Social History
Tobacco: Non-smoker
Alcohol: None
Drug: None
Personal: Single
Living: with family
Employment: Other
Family History
Family History: Other
Phy Exam
Physical Exam
Physical Exam:
CONSTITUTIONAL Patient alert and oriented to person, place and time. Well-appearing. Vital signs reviewed.
HEAD atraumatic, normocephalic.
EYES eyelids normal to inspection, Extraocular muscles intact, Conjunctiva normal, Sclera normal.
NECK normal range of motion, Trachea midline, no jugular venous distention.
RESPIRATORY CHEST No respiratory distress noted, Chest expansion equal, Bilateral breath sounds clear.
CARDIOVASCULAR regular and tachycardic. Heart sounds normal.
ABDOMEN abdomen nontender, Bowel sounds normal. No distention.
BACK normal inspection, no obvious deformities
UPPER EXTREMITY range of motion normal, Motor strength normal, no cyanosis, no edema.
LOWER EXTREMITY range of motion normal, Motor strength normal, no cyanosis, no edema.
NEURO Speech normal, No focal motor deficits, Kristie coma scale 15, Memory normal, Cranial Nerves intact to screening exam.
SKIN skin warm, dry, and normal in color.
Course
Orders/Labs/Results
Orders:
Orders
09/01/24 18:41
Electrocardiogram (*1) Urgent
Reason for Study: Chest Pain
EKG- Treatment ONCE
09/01/24 18:49
Test Result ONCE
09/01/24 18:54
B-Hydroxybutyrate Urgent
Complete Blood Count/With Diff Urgent
Comprehensive Metabolic Panel Urgent
HCG, Serum Qualitative Screen Urgent
09/01/24 20:33
Bedside Glucose- Treatment Q1H
IV Insert/Care/Rem.- Treatment PRN
0.9% Sodium Chloride 1000 ml [Nss] 1,000 ml IV BOLUS
0.9% Sodium Chloride 1000 ml [Nss] 1,000 ml IV BOLUS
Reg Insulin 100 Units/100 ml [Novolin R Insulin Infusion] 100 units in 100 ml IV NOW
09/01/24 20:34
Cardiac Monitoring- Treatment ONCE
Ondansetron Injectable [Zofran] 4 mg IV NOW STA
09/01/24 20:59
Urinalysis Urgent
Date Specimen was Collected: 09/01/24
Time Specimen was Collected: 20:51
Urine Microscopic Urgent
Date Specimen was Collected: 09/01/24
Time Specimen was Collected: 20:51
09/01/24 21:08
Basic Metabolic Panel Q2H
Venous Blood Gas Urgent
%Oxygen/Room Air: 21%
09/01/24 22:00
Flush (0.9% Sodium Chloride) [Flush (Nss)] See Dose Instructions IV PER PROTOCOL
09/01/24 22:45
Basic Metabolic Panel Q2H
09/02/24 00:45
Basic Metabolic Panel Q2H
Abnormal Lab Results
09/01/24 09/01/24
18:54 20:59
Absolute Neuts (auto) 7.4 H 10^3/uL
(1.4-6.5)
Neutrophils % 75.3 H %
(42.2-75.2)
Lymphocytes % 19.4 L %
(20.5-51.1)
Sodium 126 L mmol/L
(135-145)
Chloride 95 L mmol/L
(98-107)
Carbon Dioxide 17 L mmol/L
(22-30)
Glucose 800 H* mg/dl
(70-99)
Total Bilirubin 1.4 H mg/dl
(0.2-1.3)
Urine Ketones 2+ A
(Negative)
Urine Occult Blood 3+ A
(Negative)
Urine Glucose 4+ A
(Negative)
B-Hydroxybutyrate 0.98 H mmol/L
(0.02-0.27)
09/01/24 18:54
Vital Signs
Initial and Last Documented VS:
Initial Vital Signs
Temp Pulse Resp BP Pulse Ox
98.1 F 144 20 160/98 99
09/01/24 18:45 09/01/24 18:45 09/01/24 18:45 09/01/24 18:45 09/01/24 18:45
Last Documented Vital Signs
Temp Pulse Resp BP Pulse Ox
98.1 F 144 20 160/98 99
09/01/24 18:45 09/01/24 18:45 09/01/24 18:45 09/01/24 18:45 09/01/24 18:45
MDM/Problems Addressed
MDM/Problems Addressed:
Severe acute hyperglycemia, borderline DKA, uncontrolled hypertension
*Pulse Oximetry
Patient hypoxic: no
*EKG
Interpreted by ED Provider?: Yes
Interpretation: abnormal
Rate: tachycardiac
Rhythm: sinus
[place]: normal axis
Ischemia: no ischemia
*Air Press Operator Interpretation
Rate: tachycardiac
Interpretation: abnormal
Rhythm: sinus
*Critical Care Note
Total Time (30-74mins, 75-104mins- exclusive of procedures): 40 minutes
Data Reviewed
Source: patient and family
Prescriptions/Medications Considered But Not Given:
Considered antibiotics but no overt infection at this time. Urine pending
Patient Management
Discussion with other providers: Hospitalist
Escalation/DeEscalation of care consider admission/obs:
24-year-old female who presents with severe hyperglycemia. She did have some nausea but does appear well on my assessment is not so hyperventilating. I suspect she is just starting DKA pathophysiology. Insulin drip ordered. Admit
ED Attending Note
-
Portions of this chart may have been created with voice recognition software.� Occasional wrong word or��sound alike� substitutions may have occurred due to the inherent limitations of voice recognition software.
Discharge Plan
Departure
Patient Disposition: Admit
Date of Disposition: 09/01/24
Time of Disposition: 21:09
Admit to: IMU
Presentation/result/management discussed w/ accepting MD/DO: Hospitalist
Discharge Problem:
DKA (diabetic ketoacidosis), severe acute hyperglycemia, Pseudohyponatremia
Prescriptions:
No Action
Insulin Pump [Patient's Own Insulin Pump:] 1 UNITS Pump.Resvr
0 ea SC . PROGRAMED
Rx Instructions:
Insulin Lispro
levonorgestrel-ethinyl estrad 0.15 mg-30 mcg (91) tablets,dose pack,3 month
1 tab PO DAILY
Wegovy 1 mg/0.5 mL Pen Injector
1 mg SC Q2W
ondansetron [Zofran ODT] 4 mg Tablet,Disintegrating
4 mg PO Q8HPRN PRN (Reason: nausea)
Referrals:
Paras Ybarra MD [Family Provider] -
Interventions
Interventions:
*Risk Screen - Suicide Last Done: 09/01/24 18:45
*General Assessment Last Done: 09/01/24 18:45
*Neglect/Abuse Screening Last Done: 09/01/24 18:45
*ED COVID-19 Vaccine History Last Done: 09/01/24 18:45
Discharge Date and Time
Print Language: MALAY
[2024-09-01] MEDS: NSS 1000 IV ×2 (21:13→21:14)
[2024-09-01] MEDS: ZOFRAN 4 MG IV (21:16)
[2024-09-01 21:19] LABS: Urine Albumin Negative (Neg - Trace); Urine Bilirubin Negative (Negative); Urine Character Clear (Clear); Urine Color Yellow; Urine Glucose 4+ (Negative); Urine Ketone 2+ (Negative); Urine Leukocyte Negative (Negative); Urine Nitrite Negative (Negative); Urine Occult Blood 3+ (Negative); Urine Specific Gravity 1.005 (<1.030); Urine Urobilinogen Negative (Neg - 1+)
[2024-09-01] MEDS: NOVOLIN R INSULIN INFUSION 100 IV (21:20)
[2024-09-01 21:21] LABS: Venous Blood Gas B.E. -3.8 mmol/L (-4 to +4); Venous Blood Gas HCO3 20.7 mmol/L (22-27); Venous Blood Gas pCO2 35 mmHg (35-48); Venous Blood Gas pH 7.38 (7.32-7.43); Venous Blood Gas pO2 115 mmHg (30-50)
[2024-09-01 21:33] LABS: Urine Bacteria Few (Negative); Urine Red Blood Cell 0-2 /HPF (0-2); Urine White Cell 0-2 /HPF (0-5)
[2024-09-01 21:45] LABS: Blood Urea Nitrogen 14 mg/dl (7-17); Calcium 9.7 mg/dl (8.4-10.2); Carbon Dioxide 19 mmol/L (22-30); Chloride 94 mmol/L (98-107); Estimated Creatinine Clearance 95 ml/min; Sodium 129 mmol/L (135-145); eGFR > 60.00
[2024-09-01 22:00] VITALS: BP 132/82
--- NOTE | 2024-09-01 22:10 | HPS.HSE ---
Family Physician
-
Family Physician: Paras Ybarra MD
Chief Complaint
-
elevated blood glucose
History of Present Illness
This is a 24-year-old with type 1 diabetes on insulin pump presents to the emergency department after developing symptomatic hyperglycemia and possible DKA.
Patient reported that about 1 week ago she had urinary tract symptoms and was treated with Macrobid. It appears that the urine culture was not sensitive to Macrobid. She was later prescribed amoxicillin but she has not started amoxicillin yet.
She reported that she is on insulin pump and had a DKA about 1 month ago and this was thought to be secondary to the and appropriate functioning of the pump in terms of the acute settings. The settings was changed to just a basal insulin setting.
She had been well since then up until today when she noticed that she still continued to have some mild back pain and urinary symptoms however she developed polyuria and polydipsia. She reported that time glucose was 250 and he started spiking
higher. At around the evening time it was reading high. She checked her ketones at home and she has small ketones. She had nausea she had mild palpitations. She measured her heart rate and it was elevated at 125. When she arrived in the
emergency department she vomited 3 times and it was nonbloody and nonbilious.
Here in the emergency department she was afebrile, blood pressure 134/90 with a pulse of 127. CBC was unremarkable. Electrolytes were notable for a sodium of 126, bicarb of 17, anion gap of 14, BUN/creatinine of 11 and 0.9 with a blood glucose of
800. Beta-hydroxybutyrate was elevated at 0.98.
Medical History
Past Medical History
Past Medical History: Reports IDDM, Psychiatric (PTSD/anxiety) and Other (vitiligo, PCOS, endometriosis)
Past Surgical History: Reports None
Social History
Tobacco: Non-smoker
Alcohol: Occasional (1 drink per week)
Drug: None
Family History
Family History: Diabetes (type 2)
Allergies / Home Medications
Allergies reflects when Allergies were last updated in [facility].
Home Medications with original date entered in [facility]
Allergy/Medication List:
Allergies
Allergy/AdvReac Type Severity Reaction Status Date / Time
No Known Allergies Allergy Verified 09/01/24 18:50
Home Medications
Insulin Pump [Patient's Own Insulin Pump:] 0 ea SC . PROGRAMED Diabetes 07/22/19
levonorgestrel 0.15 mg-ethinyl estradiol 30 mcg tablets,3 mos pack(91) 1 tab PO DAILY Bitrh control 07/14/24
ondansetron 4 mg disintegrating tablet 4 mg PO Q8HPRN PRN nausea 09/01/24
semaglutide (weight loss) 1 mg/0.5 mL subcutaneous pen injector (Wegovy) 1 mg SC Q2W 09/01/24
Review of Systems
-
Constitutional: Reports No Symptoms
EENT: Reports No Symptoms
Respiratory: Reports No Symptoms
Cardiac: Reports Palpitations
Abdomen/GI: Reports No Symptoms
: Reports No Symptoms
Musculoskeletal: Reports No Symptoms
Skin: Reports No Symptoms
Neurological: Reports No Symptoms
Endocrine: Reports See HPI, Polyuria and Polydipsia
Hematologic/Lymphatic: Reports No Symptoms
Psych: Reports No Symptoms
Physical Exam
Vital Signs
Vital Signs
Temp Pulse Resp BP Pulse Ox
98.1 F 127 23 134/92 99
09/01/24 18:45 09/01/24 20:51 09/01/24 20:51 09/01/24 20:50 09/01/24 18:45
Physical Exam
General: Well Developed, Well Nourished, No Apparent Distress and Comfortable
HEENT: NormoCephalic, Anicteric, Moist mucous membranes and Atraumatic
Respiratory: Clear
Cardiac: S1/S2 and Regular Rhythm
Breast: Deferred by me
GI: Soft, Non Tender, Non Distended and Normal Bowel Sounds
Rectal: Deferred by Provider
Genito-urinary: Deferred by me
Musculoskeletal: No Clubbing, No Cyanosis and No Edema
Skin: Warm
Neuro: Nonfocal/grossly intact
Hematologic/Lymphatic: No Lymphadenopathy
Psych: Calm
Laboratory Results
-
09/01/24 18:54
Laboratory Results
Total Bilirubin 1.4 mg/dl (0.2-1.3) H 09/01/24 18:54
AST 21 U/L (14-36) 09/01/24 18:54
ALT 16 U/L (0-35) 09/01/24 18:54
Alkaline Phosphatase 80 U/L (38-126) 09/01/24 18:54
Data Reviewed
-
Lab Data: Labs Reviewed by me
Old Records: Reviewed
Impression/Plan
-
IMPRESSION:
DKA with severe hyperglycemia possibly in the setting of a urinary tract infection in a patient with type 1 diabetes on insulin pump.
PLAN:
DKA
- admit to icu
- DKA protocol with aggressive hydration
- d/c insulin pump for now
- diabetic [employer] consult
- NPO except water, ice chips and meds
- checking u/a for uti, abx pending results
- symptomatic managment
DVT PPX - lovenox sq
Code status - Full Code
[2024-09-01 22:26] LABS: Glucose - Point of Care 495 mg/dl (70-99)
--- NOTE | 2024-09-01 22:38 | EDRN ---
Still do not have 2108 glucose resulted from lab draw. Accu check RR HI - blood draw for stat glucose per protocol.
[2024-09-01 22:44] LABS: Glucose 716 mg/dl (70-99)
--- NOTE | 2024-09-01 22:55 | EDRN ---
Report called to Maria Luisa in ICU
[2024-09-01 23:11] VITALS: BP 140/90
[2024-09-01 23:15] VITALS: BP 130/95
--- NOTE | 2024-09-01 23:15 | PTCARENOTE ---
pt admit to ICU, aaox3, ST low 100s, IV x 3 WNL- insulin gtt infusing per work list. POC discussed with pt/pt's mom.
[2024-09-01 23:20] LABS: Glucose 559 mg/dl (70-99)
[2024-09-01 23:30] VITALS: BP 119/87
[2024-09-01 23:33] LABS: Glucose - Point of Care 421 mg/dl (70-99)
[2024-09-01] MEDS: NSS with KCL 20 MEQ 1000 IV (23:37)
[2024-09-02] VITALS (13 sets, daily range): BP systolic 114–136; BP diastolic 86–110; BMI 28.8
[2024-09-02 00:33] LABS: Glucose - Point of Care 307 mg/dl (70-99)
[2024-09-02 00:56] LABS: Blood Urea Nitrogen 10 mg/dl (7-17); Calcium 8.8 mg/dl (8.4-10.2); Carbon Dioxide 18 mmol/L (22-30); Chloride 102 mmol/L (98-107); Estimated Creatinine Clearance 108 ml/min; Glucose 322 mg/dl (70-99); Sodium 135 mmol/L (135-145); eGFR > 60.00
[2024-09-02 01:25] LABS: Glucose - Point of Care 259 mg/dl (70-99)
[2024-09-02 02:16] LABS: Glucose - Point of Care 214 mg/dl (70-99)
[2024-09-02] MEDS: D5/0.45%NSS with KCL 20 MEQ 1000 IV ×2 (02:28→09:08)
[2024-09-02 03:13] LABS: Glucose - Point of Care 154 mg/dl (70-99)
[2024-09-02 04:25] LABS: Glucose - Point of Care 134 mg/dl (70-99)
[2024-09-02 04:28] LABS: Hematocrit 32.4 % (37.0-47.0); Mean Corpuscular Hgb 29.3 pg (27.0-31.0); Mean Corpuscular Volume 86.4 fL (81.0-99.0); Mean Platelet Volume 9.6 fL (7.4-10.4); Platelet Count 298 10^3/uL (130-400); Red Blood Cell Count 3.75 10^6/uL (4.20-5.40); Red Cell Dist. Width 12.2 % (11.5-14.5); White Blood Cell Count 11.6 10^3/uL (4.8-10.8)
[2024-09-02 04:42] LABS: APTT 23.9 Sec (23.4-35.0); PT 14.5 Sec (11.4-14.6)
[2024-09-02 04:52] LABS: Blood Urea Nitrogen 8 mg/dl (7-17); Calcium 8.5 mg/dl (8.4-10.2); Carbon Dioxide 21 mmol/L (22-30); Chloride 104 mmol/L (98-107); Estimated Creatinine Clearance > 125 ml/min; Glucose 145 mg/dl (70-99); Potassium 4.2 mmol/L (3.5-5.1); Sodium 134 mmol/L (135-145); eGFR > 60.00
[2024-09-02 05:23] LABS: Glucose - Point of Care 136 mg/dl (70-99)
--- NOTE | 2024-09-02 06:00 | PTCARENOTE ---
no changes in pt assessment.
[2024-09-02 06:26] LABS: Glucose - Point of Care 150 mg/dl (70-99)
[2024-09-02 07:05] LABS: Glucose - Point of Care 183 mg/dl (70-99)
--- NOTE | 2024-09-02 07:55 | CON.INTV ---
Consultation
Consultation Request
Date/Time Consultation Requested: 09/01/2024
Date/Time Consultation Performed: 09/02/2024 - 0750
Requesting Provider: Dr. Cortez
Performing Provider: Dr. Muniz
Reason for Consultation: Insulin gtt for HHNK
Medical History
-
Chief Complaint: Chest pain x 2 days
History of Present Illness:
24-year-old female with a past medical history of DM type I with insulin pump + history of UTI who presents with chest pain X 2 days. She had recently had a UTI about a week ago and finished her antibiotics (Macrobid) (08/31/2024). She
says that whenever she gets a UTI that her sugars are unpredictable so she changed the settings on her insulin pump and then that is what led to her high sugars. She says she had DKA about 1 month ago. In the ER she was afebrile to 98.1 �F, pulse
rate 144, breathing at 20 breaths/min, BP 160/98 and saturating 99% on room air. Initial labs showed Hb 13.1, serum sodium 126, blood glucose 800, T. bili 1.4, beta-hCG negative, urinalysis with +2 urine ketones and no other signs of UTI and
beta-hydroxybutyrate 0.98. She was given 2 L NS 0.9% in the ER + Zofran and started on insulin drip. She was admitted to the ICU for further care and anime artist services consulted for additional management/recommendations.
Patient was seen and evaluated this morning. She is doing well. Patient's mother, Renu, is at bedside. All questions were answered. Patient's heart rate is 94 and she is saturating 97% on room air. BP 126/105. She currently denies chest pain,
BLAKELY, abdominal pain, nausea, fevers or chills.
PMHx: Type 1 diabetes with insulin pump, history of UTI, vitiligo, PCOS, PTSD, anxiety, endometriosis
PSHx: Non-contributory
Past Medical History
Past Medical History: Other (Above as per HPI)
Past Surgical History: Other (Above as per HPI)
Social History
Tobacco: Non-smoker
Alcohol: Occasional (1 drink per week)
Drug: None
Living: With Family
Family History
Family History: Other (DM type II)
Allergies / Home Medications
Allergies
Allergy/AdvReac Type Severity Reaction Status Date / Time
No Known Allergies Allergy Verified 09/01/24 18:50
Home Medications
�Medication �Instructions �Recorded �Confirmed �Last Taken �Type
Insulin Pump [Patient's Own 0 ea SC . PROGRAMED Diabetes 07/22/19 09/01/24 Unknown History
Insulin Pump:]
levonorgestrel 0.15 mg-ethinyl 1 tab PO DAILY Bitrh control 07/14/24 09/01/24 07/14/24 History
estradiol 30 mcg tablets,3 mos
pack(91)
ondansetron 4 mg disintegrating 4 mg PO Q8HPRN PRN nausea 09/01/24 09/01/24 Unknown History
tablet
semaglutide (weight loss) 1 mg/0.5 1 mg SC Q2W 09/01/24 09/01/24 Unknown History
mL subcutaneous pen injector
(Wegovy)
Review of Systems
-
History Source: Patient
All other systems: Negative unless noted
Vitals / Labs / Diagnostic Testing
Vital Signs
Temp Pulse Resp BP Pulse Ox
98.5 F 105 17 128/110 96
09/02/24 07:37 09/02/24 08:00 09/02/24 08:00 09/02/24 08:00 09/02/24 08:00
Lab Data
09/02/24 04:14
Laboratory Results
09/02/24
04:14
PT 14.5
INR 1.10
APTT 23.9
Diagnostic Testing:
Physical Exam
-
HEENT: Normocephalic and Anicteric
Cardiovascular: S1/S2 and Peripheral Edema (n)
Respiratory: Wheeze (n), Rales (n) and Rhonchi (n)
GI: Soft, Non Distended, Non Tender and Normal Bowel Sounds
Neurology: AO x 3 and Tremors (n)
Skin: Warm and Dry
General: Respiratory Distress (n), Comfortable, Chills (n) and Sweats (n)
Assessment
-
Assessment: 24-year-old female with a past medical history of DM type I with insulin pump + history of UTI who presents with chest pain X 2 days. She had recently had a UTI about a week ago and finished her antibiotics (Macrobid)
(08/31/2024). She says that whenever she gets a UTI that her sugars are unpredictable so she changed the settings on her insulin pump and then that is what led to her high sugars. She says she had DKA about 1 month ago. In the ER she was afebrile
to 98.1 �F, pulse rate 144, breathing at 20 breaths/min, BP 160/98 and saturating 99% on room air. Initial labs showed Hb 13.1, serum sodium 126, blood glucose 800, T. bili 1.4, beta-hCG negative, urinalysis with +2 urine ketones and no other signs
of UTI and beta-hydroxybutyrate 0.98. She was given 2 L NS 0.9% in the ER + Zofran and started on insulin drip. She was admitted to the ICU for further care and anime artist services consulted for additional management/recommendations.
Chronic conditions [employer]: Type 1 diabetes with insulin pump, history of UTI, vitiligo, PCOS, PTSD, anxiety, endometriosis
Impression:
#DM type II (uncontrolled: HbA1c 7.7 on 07/14/2024) complicated by HHNK
#Leukocytosis likely reactive
#Acute anemia
#Mild hyponatremia (initially was lower due to pseudohyponatremia)
#Mild hyperbilirubinemia
#Recent UTI s/p Macrobid (finished on 08/31/2024)
Plan:
- Given that the patient's blood glucose was >600 initially with serum bicarb 17, pH>7.3 and a relatively low beta-hydroxybutyrate, this is more consistent with HHNK than DKA
- Continue insulin gtt with q1hr fingersticks
- Continue IVF, currently on D5-1/2NS 0.45%/KCl 20MeQ
- Once AG closed x2 and BG <200 and serum HCO3>18 then will transition off the gtt, possibly with resuming patient's insulin pump, otherwise will start basal-bolus SQ insulin
- Once she starts to eat, start ADA
- q4hr labs while on insulin gtt
- Patient recently had a UTI and finished her Macrobid this past on 08/31/2024
- Patient had repeat urine culture on admission on 09/01 ---> follow-up results (so far NGTD)
- Patient remains asymptomatic, currently no need for antibiotics at this time
- Maintain SpO2 >90-94%
- Maintain MAP>65
- Replete electrolytes with K>4, Mg>2
- Maintain euglycemia with goal BG 140-180
- Trend H/H and transfuse if needed to keep Hb>7g/dL; keep plt>20k, unless there is concern for bleeding then keep plt>50k
- prn nebulized bronchodilators - not currently bronchospastic
- Incentive spirometer encouraged 10x per hour for at least 4 hrs a day
- DVT ppx: LMWH
Once patient is off the insulin drip, we can transition her back to her insulin pump. As long as her BG remained stable for the next 2 blood sugar checks which should be every hours at that time, and she is tolerating a diabetic diet then she is
cleared to go home from my standpoint. Will defer official decision to hospitalist.
Otherwise she can be downgraded to telemetry today after she is off the insulin drip. Once downgraded then anime artist/pulmonary service will sign off. Please call back with any questions or concerns.
Critical care statement: A total of 40 minutes of critical care time was provided for this patient today. This includes management of unstable vital signs, evaluation of the patient at bedside, reviewing the patient's pertinent medical records
including radiographs, microbiology, laboratory evaluations, and discussion with primary team, consultants, pharmacy, nutrition, physical therapy, case management, charge nurse, critical care nursing, and respiratory therapy.
[2024-09-02 08:26] LABS: Glucose - Point of Care 167 mg/dl (70-99)
--- NOTE | 2024-09-02 08:43 | PTCARENOTE ---
pt aaox3. states no pain or nausea. room air breath sounds clear. insulin and ivf running as ordered. reviewed pt condition with pt and mother. pt would like to go back on her pump.
[2024-09-02 09:17] LABS: Glucose - Point of Care 155 mg/dl (70-99)
[2024-09-02 10:25] LABS: Glucose - Point of Care 135 mg/dl (70-99)
--- NOTE | 2024-09-02 10:29 | CM ---
Addendum entered by Srinath Clemens 09/02/24 14:21:
D/c home today
No CM needs at this time
Plan: Home; no needs
Original Note:
Pt seen bedside w/ mother and attending. Poss d/c today.
Initial assessment completed. Admitted for elevated blood glucose. Pt is a 24-year-old with type 1 diabetes on insulin pump presents to the emergency department after developing symptomatic hyperglycemia and possible DKA.
Pt resides w/ her parents in a 3STH- 4 steps to enter the home. Pt is independent w/ ambulating and ADLs. No SNF/VN/PT hx. No current services at this time.
Address, points of contact and insurance verified
PCP: Dr. Ybarra
Pharmacy: [facility]
Plan: Home; no needs
[2024-09-02 10:42] LABS: Glycohemoglobin (HgbA1c) 7.5 % (4.0-5.6)
[2024-09-02 11:20] LABS: Blood Urea Nitrogen 5 mg/dl (7-17); Calcium 9.1 mg/dl (8.4-10.2); Carbon Dioxide 22 mmol/L (22-30); Chloride 105 mmol/L (98-107); Estimated Creatinine Clearance > 125 ml/min; Glucose 158 mg/dl (70-99); Potassium 4.3 mmol/L (3.5-5.1); Sodium 135 mmol/L (135-145); eGFR > 60.00
--- NOTE | 2024-09-02 11:42 | PTCARENOTE ---
pt restarted own insulin pump. insulin gtt turned off. ivf turned off per dr order.
--- NOTE | 2024-09-02 11:58 | W.PN.HOSP.TC ---
Addendum entered and electronically signed by Shaji Gaines MD 09/02/24 14:12:
Insulin pump was discontinued. Patient was started on high insulin infusion. Patient has been in touch with her primary freelance makeup artist and has been adjusting basal bolus regimen. Patient sugar on continuous glucometer with 190s. Patient to
follow-up with the primary freelance makeup artist next week. Patient also follow-up with her primary doctor in regards for recurrent UTI. Patient tolerating diet without difficulty. Eager to get discharged home.
More than 30 minutes spent in discharge including
Final examination of the patient
Summarizing hospital stay
Instructions for continuing care to all relevant caregivers
Preparation of discharge records, prescriptions, and referral forms
Total time spent (in minutes): 53
Original Note:
Today's Communication/Plan
-
Dispo Home if off insulin drip with control blood glucose and tolerating diet
Assessment / Plan
Assessment / Plan
IMPRESSION:
DKA with severe hyperglycemia possibly in the setting of a urinary tract infection in a patient with type 1 diabetes on insulin pump.
PLAN:
DKA
Status post DKA protocol
Anion gap has been closed
Start patient on diet. Restart patient insulin pump with basal bolus regimen
Discontinue IV insulin infusion
Monitor blood glucose for few hours.
Monitor for diet tolerance
Recommended outpatient follow-up with freelance makeup artist.
Chronic medical problem
PCOS
Endometriosis
Frequent urinary tract infection- recommend to follow-up with primary doctor
Vitiligo
PTSD/anxiety-regarding blood draws and IV.
Recurrent UTI- UA negative for nitrites and leukoesterase. Positive for ketones and glucose.
DVT PPX - lovenox sq
Code status - Full Code
Discussed with manager of it
Discussed with patient mother at bedside
Dispo Home if off insulin drip with control blood glucose and tolerating diet
Anticipated Discharge: Today
Subjective/Interval History
-
Date of Service: September 02, 2024
Denies any nausea vomiting
States feeling better
Objective Data
-
Labs:
Laboratory Results
09/02/24 09/02/24 09/02/24
00:22 04:14 08:26
WBC 11.6 H
Hgb 11.0 L
Hct 32.4 L
Plt Count 298
PT 14.5
INR 1.10
APTT 23.9
Sodium 135 134 L Cancelled
Potassium 4.0 4.2 Cancelled
Chloride 102 104 Cancelled
Carbon Dioxide 18 L 21 L Cancelled
BUN 10 8 Cancelled
Creatinine 0.7 0.6 Cancelled
Glucose 322 H 145 H Cancelled
Calcium 8.8 8.5 Cancelled
09/02/24 09/02/24 09/02/24
09:49 10:10 10:45
WBC
Hgb
Hct
Plt Count
PT
INR
APTT
Sodium Cancelled Pending 135
Potassium Cancelled Pending 4.3
Chloride Cancelled Pending 105
Carbon Dioxide Cancelled Pending 22
BUN Cancelled Pending 5 L
Creatinine Cancelled Pending 0.6
Glucose Cancelled Pending 158 H
Calcium Cancelled Pending 9.1
09/02/24 09/02/24 09/02/24
12:00 16:00 20:00
WBC
Hgb
Hct
Plt Count
PT
INR
APTT
Sodium Pending Pending Pending
Potassium Pending Pending Pending
Chloride Pending Pending Pending
Carbon Dioxide Pending Pending Pending
BUN Pending Pending Pending
Creatinine Pending Pending Pending
Glucose Pending Pending Pending
Calcium Pending Pending Pending
Vital Signs:
Vital Signs
Temp Pulse Resp BP Pulse Ox
98.6 F 105 17 128/110 96
09/02/24 11:44 09/02/24 08:00 09/02/24 08:00 09/02/24 08:00 09/02/24 08:00
I&O
09/01/24 09/02/24 09/03/24
06:59 06:59 06:59
Intake Total 1172 / 1324 758 / 758
Balance 1172 / 1324 758 / 758
Physical Exam
-
General: Well Developed, Well Nourished and No Apparent Distress
HEENT: Normocephalic, Atraumatic and Moist Mucous Membranes
Respiratory: Negative Non Labored Respirations or Accessory Resp Muscle Use
Cardiac: Regular Rhythm and S1/S2
GI: Nondistended
Skin: Negative Jaundice
Neuro: Awake, Alert, Oriented, AO x 3, No Motor Deficits and Nonfocal/Grossly Intact; Negative Slurred Speech or Facial Droop
Psych: Calm
--- NOTE | 2024-09-02 12:08 | W.DCSUMMARY ---
Discharge Summary
Discharge Data
Date of Admission: 09/01/24
Date of Discharge: 09/02/24
-
Pending Results: No
Hospital Course
24 female past medical history of PCOS, endometriosis, vitiligo, PTSD, anxiety was presenting from home with abnormally high sugar. Patient was found to be in DKA. Patient was started on IV insulin infusion with DKA protocol with every hour
Accu-Cheks, and frequent BMP. Patient was admitted to medical ICU. Insulin pump was discontinued. Patient blood sugars down trended. Patient anion gap closed. Patient was taken off of IV insulin drip and was started on high insulin pump
infusion. Patient's sugars stable. Patient was tolerating diet. Patient UA was checked on admission was found to be negative. Patient has been in touch with her primary clinical support tech and has been adjusting basal bolus regimen. Patient sugar
on continuous glucometer with 190s. Patient to follow-up with the primary clinical support tech next week. Patient also follow-up with her primary doctor in regards for recurrent UTI. Patient tolerating diet without difficulty. Vital signs stable.
Stable on room air..
Discharge Plan
-
Patient Disposition: Home (Routine Discharge)
Discharge Diagnosis/Procedures: Diabetic ketoacidosis
Condition: Fair
Diet: Diabetic, Carb Controlled
Activity: With assistance and As tolerated
Driving Restrictions: As prior to admission
Activity Restrictions/Additional Instructions:
Follow-up with your primary clinical support tech next week.
Referrals:
Paras Ybarra MD [Family Provider] - in less than 1 week
Prescriptions:
Continued
Insulin Pump [Patient's Own Insulin Pump:] 1 UNITS Pump.Resvr
0 ea SC . PROGRAMED
Rx Instructions:
Insulin Lispro
levonorgestrel-ethinyl estrad 0.15 mg-30 mcg (91) tablets,dose pack,3 month
1 tab PO DAILY
Wegovy 1 mg/0.5 mL Pen Injector
1 mg SC Q2W
ondansetron 4 mg Tablet,Disintegrating
4 mg PO Q8HPRN PRN (Reason: nausea)
Discharge Orders:
Discharge Patient (As Directed); Ordered 09/02/24
Ordered By: Shaji Gaines
Discharge Date and Time
Print Language: KAZAKH
[2024-09-02 12:39] LABS: Glucose - Point of Care 206 mg/dl (70-99)
[2024-09-02 13:35] LABS: Glucose - Point of Care 219 mg/dl (70-99)
== END 2024-09-02 14:58 | disposition home or self-care (01) | DRG 638 ==
LOC: ICU 22:28
PROVIDERS: Emergency Medicine; ADMITTING PHYSICIAN Internal Medicine; ATTENDING PHYSICIAN Hospitalist; CONSULT PHYSICIAN Internal Medicine Critical Care Medicine; EMERGENCY PHYSICIAN Emergency Medicine; FAMILY PHYSICIAN Family Medicine
DX: E10.10 Type 1 diabetes mellitus with ketoacidosis without coma (principal); E87.1 Hypo-osmolality and hyponatremia; F43.10 Post-traumatic stress disorder, unspecified; F41.9 Anxiety disorder, unspecified; E28.2 Polycystic ovarian syndrome; D64.9 Anemia, unspecified; Z96.41 Presence of insulin pump (external) (internal); Z87.440 Personal history of urinary (tract) infections; Z79.85 Long-term (current) use of injectable non-insulin antidiabetic drugs
CPT/HCPCS: 80048; 80053; 81003; 81015; 82010; 82805; 82947; 82962; 83036; 84703; 85025; 85027; 85610; 85730; 87077; 87086; 87147; 93005; 96365; 96366; 96375; 99291

== ENCOUNTER 2024-09-26 00:11 | Emergency (ER) | payer BC, SELFPAY ==
[2024-09-26 00:13] VITALS: BP 162/114
[2024-09-26 00:28] VITALS: BMI 28.8
--- NOTE | 2024-09-26 00:45 | ED.GENMED ---
History of Present Illness
General
Chief Complaint: Cold/Flu/URI Symptoms
Time Seen by Provider: 09/26/24 00:18
History of Present Illness
History of Present Illness:
24-year-old female with history of type 1 diabetes with insulin pump presenting to the emergency department for fever and cough. Patient reports symptoms started yesterday. She called her doctor earlier this evening, was prescribed an antibiotic
for suspected pneumonia. Prior to arrival she felt like her shortness of breath got worse, and also checked her ketone sticks, noticed that it was positive. 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 Denies chest pain. Denies
abdominal pain. Has had some nausea. Denies diarrhea. Denies additional acute medical complaints
Past History
Past History
ED Past Medical History: IDDM and Other (Polycystic ovarian syndrome)
ED Past Surgical History: None
Patient has exhibited threatening behavior?: No
Social History
Tobacco: Non-smoker
Alcohol: None
Drug: None
Personal: Single
Living: with family
Employment: Other
Family History
Family History: Other
Phy Exam
Physical Exam
Physical Exam:
General: Well-appearing, no clinical signs of dehydration, nontoxic and in no acute distress
HEENT: protecting airway
Neck: appears supple
CV: Tachycardic, regular rhythm, no evidence of cyanosis
Resp: No accessory muscle use, no increased work of breathing, lungs clear to auscultation bilaterally
Abd: No distention
Extremities: No deformities, no swelling
Neuro: alert, no focal neurologic deficit
: deferred
Rectal: deferred
Psych: Normal affect
Skin: Vitiligo
Sepsis
Sepsis Screening
Sepsis Assessment: Sepsis Ruled Out
Sepsis Screen
Sepsis Screen: Sepsis Ruled Out
Date: 09/26/24
Time: 06:46
Course
Orders/Labs/Results
Orders:
Orders
09/26/24 00:25
EKG [Electrocardiogram (*1)] Urgent
Reason for Study: Tachycardia
09/26/24 00:26
EKG- Treatment ONCE
09/26/24 00:31
B-Hydroxybutyrate Urgent
COVID-19 Antigen Urgent
Source: Nasal Swab
Complete Blood Count/With Diff Urgent
Comprehensive Metabolic Panel Urgent
Troponin I Urgent
Influenza A+B Rapid Molecular Urgent
CROW Source: Nasal Swab
Specimen Description:
09/26/24 00:41
0.9% Sodium Chloride 1000 ml [Nss] 1,000 ml IV BOLUS
09/26/24 00:42
Ketorolac [Toradol] 15 mg IV NOW STA
09/26/24 01:30
CR Chest - 2 Views Urgent
Comment:
Reason For Exam: cough. fever
09/26/24 01:35
Venous Blood Gas Urgent
%Oxygen/Room Air: room air
09/26/24 02:37
0.9% Sodium Chloride 1000 ml [Nss] 1,000 ml IV BOLUS
09/26/24 02:38
Oseltamivir Phosphate [Tamiflu] 75 mg PO NOW STA
Abnormal Lab Results
09/26/24 09/26/24 09/26/24
00:31 00:47 01:35
Absolute Neuts (auto) 7.2 H 10^3/uL
(1.4-6.5)
Absolute Lymphs (auto) 0.9 L 10^3/uL
(1.2-3.4)
Absolute Monos (auto) 0.7 H 10^3/uL
(0.1-0.6)
Neutrophils % 80.6 H %
(42.2-75.2)
Lymphocytes % 10.6 L %
(20.5-51.1)
VBG pO2 153 H mmHg
(30-50)
Glucose 304 H mg/dl
(70-99)
POC Glucose 276 H mg/dl
(70-99)
09/26/24 00:31
09/26/24 00:31
Vital Signs
Initial and Last Documented VS:
Initial Vital Signs
Temp Pulse Resp BP Pulse Ox
99.4 F 160 24 162/114 98
09/26/24 00:13 09/26/24 00:13 09/26/24 00:13 09/26/24 00:13 09/26/24 00:13
Last Documented Vital Signs
Temp Pulse Resp BP Pulse Ox
98.2 F 120 22 123/97 98
09/26/24 02:36 09/26/24 03:30 09/26/24 03:30 09/26/24 03:01 09/26/24 03:30
MDM/Problems Addressed
MDM/Problems Addressed:
24-year-old female with history of type 1 diabetes presenting for cough, fever. Vital signs arrival significant for fever and tachycardia.
On exam, patient is no acute distress. No acute respiratory distress. Symptoms concerning for underlying infection, given presenting tachycardia and fever. Suspected source being pulmonary given cough. Will send viral swabs with pneumonia versus
COVID being a consideration. Will check chest x-ray. Reports that she had ketones prior to arrival with a sugar of 380. Will check laboratory analysis to ensure no signs of DKA.. Will start patient on IV fluids
02:30 -patient's labs are unremarkable. No elevation of beta hydroxybutyrate. No anion gap. Chest x-ray without any sign of pneumonia. Fever has resolved and heart rate is improving. Patient still remains mildly tachycardic. For this reason we
will administer another liter of fluids. Otherwise feel stable for discharge with patient supportive therapy. Mother updated at bedside. Patient would like to proceed with Tamiflu. Will start and provide prescription. Advised continued oral
hydration an fever control at home with Tylenol or Motrin
*EKG
Interpreted by ED Provider?: Yes
EKG Intrepretation Date: 09/26/24
EKG Intrepretation Time: 01:32
Interpretation: abnormal
Heart Rate: 155
Rate: tachycardiac
Rhythm: sinus
[place]: normal axis
Interval: normal interval
QRS Pattern: normal QRS
Ischemia: no ischemia
*Critical Care Note
Total Time (30-74mins, 75-104mins- exclusive of procedures): Not Applicable
ED Attending Note
-
Portions of this chart may have been created with voice recognition software.� Occasional wrong word or��sound alike� substitutions may have occurred due to the inherent limitations of voice recognition software.
Discharge Plan
Departure
Patient Disposition: Home (Routine Discharge)
Date of Disposition: 09/26/24
Time of Disposition: 03:42
Patient with high blood pressure during this ER visit?: No
Condition: Good
Discharge Problem:
Influenza A, Tachycardia
Instructions: Flu in adults - Discharge instructions
Prescriptions:
New
oseltamivir [Tamiflu] 75 mg capsule
75 mg PO BID 5 Days Qty: 10 0RF
No Action
Insulin Pump [Patient's Own Insulin Pump:] 1 UNITS Pump.Resvr
0 ea SC . PROGRAMED
Rx Instructions:
Insulin Lispro
levonorgestrel-ethinyl estrad 0.15 mg-30 mcg (91) tablets,dose pack,3 month
1 tab PO DAILY
Wegovy 1 mg/0.5 mL Pen Injector
1 mg SC Q2W
ondansetron 4 mg Tablet,Disintegrating
4 mg PO Q8HPRN PRN (Reason: nausea)
Referrals:
Paras Ybarra MD [Family Provider] -
Activity Restrictions/Additional Instructions:
You were seen in the emergency department for fever and cough
You were found to have influenza. You had normal blood work and chest x-ray imaging. Please continue to control your fever with Tylenol and Motrin and drink plenty of fluids to stay hydrated.
Please follow-up closely with your primary care physician.
Return to the emergency department for any worsening of your symptoms, or any development of chest pain, difficulty breathing, abdominal pain with persistent vomiting and inability to tolerate food or liquid by mouth (concern for dehydration),
weakness, headache or confusion, fever greater than 100.4, or any additional symptoms that are concerning to you.
Thank you for choosing [facility].
Interventions
Interventions:
*Risk Screen - Suicide Last Done: 09/26/24 00:49
*General Assessment Last Done: 09/26/24 00:49
*Neglect/Abuse Screening Last Done: 09/26/24 00:49
*ED- Fall Risk Assessment Last Done: 09/26/24 00:49
*ED COVID-19 Vaccine History Last Done: 09/26/24 00:49
*Nursing Disposition Last Done: 09/26/24 03:45
ED- Pulmonary Assessment Last Done: 09/26/24 00:49
Discharge Date and Time
Discharge Date/Time: 09/26/24 03:45
Print Language: BELIZEAN
[2024-09-26 00:49] LABS: Glucose - Point of Care 276 mg/dl (70-99)
[2024-09-26 01:10] LABS: COVID-19 Antigen Negative (Negative)
[2024-09-26 01:13] VITALS: BP 125/90
[2024-09-26] MEDS: TORADOL 15 MG IV (01:26)
[2024-09-26] MEDS: NSS 1000 IV ×2 (01:26→02:49)
[2024-09-26 01:43] LABS: Venous Blood Gas B.E. -1.5 mmol/L (-4 to +4); Venous Blood Gas HCO3 22.9 mmol/L (22-27); Venous Blood Gas pCO2 37 mmHg (35-48); Venous Blood Gas pO2 153 mmHg (30-50)
[2024-09-26 01:45] LABS: % Basophils 0.2 % (0-2); % Eosinophils 0.3 % (0-6); % Immature Granulocytes 0.3 % (0-0.5); % Lymphocytes 10.6 % (20.5-51.1); % Neutrophils 80.6 % (42.2-75.2); Absolute Lymphocytes 0.9 10^3/uL (1.2-3.4); Absolute Monocytes 0.7 10^3/uL (0.1-0.6); Absolute Neutrophils 7.2 10^3/uL (1.4-6.5); Hematocrit 39.7 % (37.0-47.0); Hemoglobin 13.3 g/dL (12.0-16.0); Mean Corp Hgb Conc. 33.5 g/dL (33.0-37.0); Mean Corpuscular Volume 86.5 fL (81.0-99.0); Mean Platelet Volume 9.5 fL (7.4-10.4); Nucleated Red Blood Cells % 0 %; Platelet Count 207 10^3/uL (130-400); Red Blood Cell Count 4.59 10^6/uL (4.20-5.40); White Blood Cell Count 8.9 10^3/uL (4.8-10.8)
[2024-09-26 02:00] VITALS: BP 130/100
[2024-09-26 02:00] LABS: ALT (SGPT) 16 U/L (0-35); AST (SGOT) 21 U/L (14-36); Albumin 3.9 g/dl (3.5-5.0); Alkaline Phosphatase 86 U/L (38-126); Blood Urea Nitrogen 7 mg/dl (7-17); Calcium 8.9 mg/dl (8.4-10.2); Carbon Dioxide 24 mmol/L (22-30); Chloride 105 mmol/L (98-107); Estimated Creatinine Clearance 122 ml/min; Glucose 304 mg/dl (70-99); Potassium 3.8 mmol/L (3.5-5.1); Sodium 137 mmol/L (135-145); Total Bilirubin 0.5 mg/dl (0.2-1.3); Total Protein 6.8 g/dl (6.3-8.2); eGFR > 60.00
[2024-09-26 02:07] LABS: B-Hydroxybutyrate 0.24 mmol/L (0.02-0.27)
[2024-09-26 02:08] LABS: Venous Blood Gas O2 Sat % 99.4 %; Venous Blood Gas O2 Therapy ROOM AIR
[2024-09-26 02:16] LABS: Troponin I < 0.012 ng/ml
[2024-09-26] MEDS: TAMIFLU 75 MG PO (02:44)
[2024-09-26 03:01] VITALS: BP 123/97
== END 2024-09-26 03:45 | disposition home or self-care (01) ==
LOC: EMR 00:11
PROVIDERS: EMERGENCY PHYSICIAN Student in an Organized Health Care Education/Training Program; FAMILY PHYSICIAN Family Medicine
DX: J10.1 Influenza due to other identified influenza virus with other respiratory manifestations (principal); E28.2 Polycystic ovarian syndrome; R00.0 Tachycardia, unspecified; Z79.4 Long term (current) use of insulin; Z96.41 Presence of insulin pump (external) (internal)
CPT/HCPCS: 99283; 96374; 96361; 71046; 80053; 82010; 82805; 82962; 84484; 85025; 87502; 87811; 93005

== ENCOUNTER 2024-12-17 03:23 | Inpatient (IN) | payer BC, SELFPAY ==
[2024-12-16 23:19] VITALS: BP 149/98
[2024-12-16 23:25] LABS: Glucose - Point of Care 468 mg/dl (70-99)
[2024-12-16 23:43] VITALS: BMI 29.7
[2024-12-16 23:54] VITALS: BP 131/86
[2024-12-16 23:59] LABS: Urine Bilirubin Negative (Negative); Urine Character Clear (Clear); Urine Color Yellow; Urine Glucose 4+ (Negative); Urine Ketone 3+ (Negative); Urine Leukocyte Negative (Negative); Urine Nitrite Negative (Negative); Urine Occult Blood Negative (Negative); Urine Specific Gravity 1.015 (<1.030); Urine Urobilinogen Negative (Neg - 1+)
[2024-12-17] VITALS (12 sets, daily range): BP systolic 108–139; BP diastolic 73–109; BMI 29.1
[2024-12-17 00:02] LABS: Urine Albumin Trace (Neg - Trace)
[2024-12-17] MEDS: NSS 1000 IV ×2 (00:37→01:46)
--- NOTE | 2024-12-17 00:41 | RESPNOTE ---
Spoke w/ Dr. Thomas about ABG orders at 2345. Dr. Thomas agreed to change the orders from Q2 ABGs to Q2 VBGs especially given the Pt's history.
[2024-12-17 01:06] LABS: Glucose - Point of Care 393 mg/dl (70-99)
[2024-12-17 01:15] LABS: HCG, Serum Qualitative Screen Negative
[2024-12-17 01:18] LABS: Venous Blood Gas B.E. -11.7 mmol/L (-4 to +4); Venous Blood Gas HCO3 13.8 mmol/L (22-27); Venous Blood Gas O2 Sat % 99.6 %; Venous Blood Gas pCO2 30 mmHg (35-48); Venous Blood Gas pH 7.27 (7.32-7.43); Venous Blood Gas pO2 144 mmHg (30-50)
[2024-12-17 01:21] LABS: % Basophils 0.6 % (0-2); % Eosinophils 0.2 % (0-6); % Immature Granulocytes 1.6 % (0-0.5); % Lymphocytes 16.4 % (20.5-51.1); % Neutrophils 74.2 % (42.2-75.2); Absolute Basophils 0.1 10^3/uL (0-0.2); Absolute Immature Granulocytes 0.2 10^3/uL (0-0.05); Absolute Lymphocytes 2.1 10^3/uL (1.2-3.4); Absolute Monocytes 0.9 10^3/uL (0.1-0.6); Absolute Neutrophils 9.4 10^3/uL (1.4-6.5); Hematocrit 39.3 % (37.0-47.0); Hemoglobin 13.5 g/dL (12.0-16.0); Mean Corp Hgb Conc. 34.4 g/dL (33.0-37.0); Mean Corpuscular Hgb 29.7 pg (27.0-31.0); Mean Corpuscular Volume 86.6 fL (81.0-99.0); Mean Platelet Volume 10.1 fL (7.4-10.4); Nucleated Red Blood Cells % 0 %; Platelet Count 347 10^3/uL (130-400); Red Blood Cell Count 4.54 10^6/uL (4.20-5.40); Red Cell Dist. Width 12.6 % (11.5-14.5); White Blood Cell Count 12.6 10^3/uL (4.8-10.8)
--- NOTE | 2024-12-17 01:25 | ED.GENMED ---
History of Present Illness
General
Chief Complaint: Blood Sugar Problem
Source: patient and family
Exam Limitations: none
Time Seen by Provider: 12/16/24 23:29
Nursing documentation reviewed up to this point in time: agreed with
History of Present Illness
History of Present Illness:
Note:
CHIEF COMPLAINT(S)
Persistent high blood glucose and nausea with vomiting.
HISTORY OF PRESENT ILLNESS
The patient is a 24-year-old female with a history of Type 1 Diabetes Mellitus who presented with persistent hyperglycemia and associated symptoms. The patient reported that her continuous glucose monitor alarm indicated high glucose levels, which
prompted evaluation. She began experiencing nausea and vomiting in the afternoon but did not notify others until later on. The patient uses an insulin pump and mentioned performing manual boluses, including a recent bolus of 10 units, and consumed
approximately 5.8 units two hours prior to arrival without significant improvement in glucose levels. The patients glucometer reading showed a blood glucose level of 460 mg/dL before her arrival, consistent with an in-facility finger stick result of
468 mg/dL. She denied any signs of infection such as fever, cough, or urinary symptoms, and reported no shortness of breath or other respiratory symptoms. She has not experienced any dizziness or vision changes today. The patient is familiar with
this condition, indicating previous similar episodes managed with hydration and monitoring. She also reported drinking water to mitigate dehydration symptoms.
SOCIAL DETERMINANTS AFFECTING HEALTH
The patient reports social alcohol use but denies tobacco, drugs, or high caffeine consumption.
MEDICATIONS
The patient uses an insulin pump for diabetes management and takes control medication.
REVIEW OF SYSTEMS
- Gastrointestinal: Reports nausea and vomiting since the afternoon.
- Endocrine: Persistent hyperglycemia as noted by continuous glucose monitoring and glucometer.
- Neurological: Denies dizziness and reports occasional vision blurring but none today.
- Respiratory: Denies cough, shortness of breath.
PROBLEM LIST
Acute Problems:
1. Hyperglycemia
2. Nausea and vomiting
PLAN
1. Initiate fluid therapy to address potential dehydration.
2. Continue glucose monitoring via continuous glucose monitor and finger sticks.
3. Adjust insulin pump as necessary once intravenous access and fluids are established.
4. No infections suspected; continue to monitor for any potential symptoms.
DIFFERENTIAL DIAGNOSIS
The Differential Diagnosis includes, in no particular order and is not limited to:
1. Diabetic ketoacidosis
2. Hyperglycemic hyperosmolar state
3. Acute gastroenteritis
4. Viral syndrome
5. Medication side effects
6. Stress-induced hyperglycemia
7. Pancreatitis
8. Electrolyte imbalance
9. Dehydration
10. Insulin pump malfunction
CARE-UPDATE
12/17/24 - 00:20
Patient demonstrates glucosuria with concurrent ketonuria.
Anion gap is 21
Disposition: Admit to hospitalist service for DKA
ASSESSMENT
It is suspected that the majority of the patients symptoms, including chest tightness and numbness, are likely related to anxiety and panic episodes. Medication side effects from recent changes in her psychiatric regimen may also contribute to her
current presentation.
INDEPENDENT INTERPRETATION OF TESTS
- My independent interpretation of cardiac labs is that they are reassuring and not indicative of cardiac issues.
- My independent interpretation of vital signs: The trend shows blood pressure and heart rate normalizing with calmer state and oxygen therapy.
MEDICATION RECONCILIATION
The patient is currently on Lexapro, Wellbutrin, and Vyvanse. She is working with her psychiatrist on medication adjustments to better manage her anxiety and ADHD.
MEDICAL DECISION MAKING
Number and Complexity of Problems Addressed:
The patient presented with symptoms consistent with anxiety-induced episodes and potential medication side effects, both of which were thoroughly assessed.
Data: The decision was made to evaluate for potential blood clots with D-dimer and respiratory issues with a chest X-ray, considering the complexity of the clinical presentation.
Risk: The patient was considered at risk for anxiety exacerbation, managed with reassurance and vital sign monitoring. Social determinants such as anxiety and potential medication access issues were considered in her management plan.
Past History
Past History
ED Past Medical History: IDDM and Other (Polycystic ovarian syndrome)
ED Past Surgical History: None
Patient has exhibited threatening behavior?: No
Social History
Tobacco: Non-smoker
Alcohol: None
Drug: None
Personal: Single
Living: with family
Employment: Other
Family History
Family History: Other
Review of Systems
Review of Systems
Allergies reviewed?: Yes
All Other Systems: ROS reviewed and negative except as documented in HPI and ROS
Phy Exam
General Physical Exam
General Presentation: well appearing and no apparent distress
General Skin: warm and dry
General Habitus: normal
General Mental: alert
General Hydration: appears well hydrated
ENT Exam
ENT Exam: EOMI, pharynx normal, neck supple and normocephalic
Eye Exam
Eye Exam: PERRL, cornea clear and conjunctiva normal
Cardiovascular Exam
Cardiovascular Exam: regular rate/rhythm, no edema, no murmur and normal peripheral pulses
Pulmonary Exam
Pulmonary Exam: lungs clear, no respiratory distress, no rales, no crackles, no rhonchi, no stridor, no wheezing and no cough
Gastrointestinal Exam
Gastrointestinal Exam: normal bowel sounds, non tender, soft, no organomegaly, no pulsatile mass and non distended
Neurological Exam
Neurological Exam: alert, oriented x3, no motor deficits and speech normal
Musculoskeletal Exam
Musculoskeletal Exam: full ROM and no edema
Skin Exam
Skin Exam: normal color, warm/dry, no rash and no petechia
Psychiatric Exam
Psychiatric Exam: normal mood/affect
Course
Orders/Labs/Results
Orders:
Orders
12/16/24 23:25
B-Hydroxybutyrate Urgent
Complete Blood Count/With Diff Urgent
Comprehensive Metabolic Panel Urgent
Glycohemoglobin (HgbA1c) Urgent
HCG, Serum Qualitative Screen Urgent
Test Result ONCE
12/16/24 23:31
Bedside Glucose- Treatment Q1H
IV Insert/Care/Rem.- Treatment PRN
0.9% Sodium Chloride 1000 ml [Nss] 1,000 ml IV BOLUS
0.9% Sodium Chloride 1000 ml [Nss] 1,000 ml IV BOLUS
12/16/24 23:41
Urinalysis Urgent
Date Specimen was Collected: 12/16/24
Time Specimen was Collected: 23:33
12/17/24 01:08
Venous Blood Gas Urgent
%Oxygen/Room Air: ra
12/17/24 01:34
Bedside Glucose- Treatment Q1H
IV Insert/Care/Rem.- Treatment PRN
Insulin Human Regular [Novolin R] 7 units IV NOW STA
Reg Insulin 100 Units/100 ml [Novolin R Insulin Infusion] 100 units in 100 ml IV NOW
12/17/24 01:35
Bedside Glucose- Treatment Q1H
IV Insert/Care/Rem.- Treatment PRN
12/17/24 01:45
Basic Metabolic Panel Q2H
12/17/24 03:45
Basic Metabolic Panel Q2H
12/17/24 05:45
Basic Metabolic Panel Q2H
Abnormal Lab Results
12/16/24 12/16/24 12/17/24
23:24 23:41 00:33
WBC 12.6 H 10^3/uL
(4.8-10.8)
Abs Immat Gran (auto) 0.2 H 10^3/uL
(0-0.05)
Absolute Neuts (auto) 9.4 H 10^3/uL
(1.4-6.5)
Absolute Monos (auto) 0.9 H 10^3/uL
(0.1-0.6)
Immature Gran % 1.6 H %
(0-0.5)
Lymphocytes % 16.4 L %
(20.5-51.1)
VBG pH
VBG pCO2
VBG pO2
VBG HCO3
Sodium 134 L mmol/L
(135-145)
Potassium 5.9 H mmol/L
(3.5-5.1)
Carbon Dioxide 8 L* mmol/L
(22-30)
Glucose 480 H* mg/dl
(70-99)
Total Bilirubin 2.0 H mg/dl
(0.2-1.3)
Total Protein 8.4 H g/dl
(6.3-8.2)
Albumin 5.1 H g/dl
(3.5-5.0)
Urine Ketones 3+ A
(Negative)
Urine Glucose 4+ A
(Negative)
POC Glucose 468 H* mg/dl
(70-99)
12/17/24 12/17/24
01:05 01:08
WBC
Abs Immat Gran (auto)
Absolute Neuts (auto)
Absolute Monos (auto)
Immature Gran %
Lymphocytes %
VBG pH 7.27 L
(7.32-7.43)
VBG pCO2 30 L mmHg
(35-48)
VBG pO2 144 H mmHg
(30-50)
VBG HCO3 13.8 L mmol/L
(22-27)
Sodium
Potassium
Carbon Dioxide
Glucose
Total Bilirubin
Total Protein
Albumin
Urine Ketones
Urine Glucose
POC Glucose 393 H mg/dl
(70-99)
12/17/24 00:33
Vital Signs
Initial and Last Documented VS:
Initial Vital Signs
Temp Pulse Resp BP Pulse Ox
98.2 F 121 20 149/98 100
12/16/24 23:19 12/16/24 23:19 12/16/24 23:19 12/16/24 23:19 12/16/24 23:19
Last Documented Vital Signs
Temp Pulse Resp BP Pulse Ox
98.2 F 113 21 139/109 100
12/16/24 23:19 12/17/24 01:01 12/17/24 01:01 12/17/24 01:01 12/16/24 23:19
*Critical Care Note
Total Time (30-74mins, 75-104mins- exclusive of procedures): 36 (Critical care statement: A total of 36 minutes of critical care time was provided for this patient. This time is separate from time utilized to perform the aforementioned documented
procedures. Aggregate critical care time includes only time during which I was engaged in work directl)
ED Attending Note
-
Portions of this chart may have been created with voice recognition software.� Occasional wrong word or��sound alike� substitutions may have occurred due to the inherent limitations of voice recognition software.
Discharge Plan
Departure
Patient Disposition: Admit
Date of Disposition: 12/17/24
Time of Disposition: 01:28
Admit to: ICU
Presentation/result/management discussed w/ accepting MD/DO: Hospitalist
Condition: Good
Discharge Problem:
DKA (diabetic ketoacidosis)
Prescriptions:
No Action
Insulin Pump [Patient's Own Insulin Pump:] 1 UNITS Pump.Resvr
0 ea SC . PROGRAMED
Rx Instructions:
Insulin Lispro
levonorgestrel-ethinyl estrad 0.15 mg-30 mcg (91) tablets,dose pack,3 month
1 tab PO DAILY
Wegovy 1 mg/0.5 mL Pen Injector
1 mg SC Q2W
ondansetron 4 mg Tablet,Disintegrating
4 mg PO Q8HPRN PRN (Reason: nausea)
oseltamivir [Tamiflu] 75 mg capsule
75 mg PO BID 5 Days Qty: 10 0RF
Referrals:
UNKNOWN - PT NOT,INTERVIEWE [Family Provider]
Interventions
Interventions:
*Risk Screen - Suicide Last Done: 12/16/24 23:19
*General Assessment Last Done: 12/16/24 23:19
*Neglect/Abuse Screening Last Done: 12/16/24 23:43
*ED- Fall Risk Assessment Last Done: 12/16/24 23:43
*ED COVID-19 Vaccine History Last Done: 12/16/24 23:43
Discharge Date and Time
Print Language: IRISH
[2024-12-17 01:27] LABS: ALT (SGPT) 17 U/L (0-35); AST (SGOT) 25 U/L (14-36); Albumin 5.1 g/dl (3.5-5.0); Alkaline Phosphatase 90 U/L (38-126); Blood Urea Nitrogen 15 mg/dl (7-17); Calcium 9.8 mg/dl (8.4-10.2); Carbon Dioxide 8 mmol/L (22-30); Chloride 105 mmol/L (98-107); Estimated Creatinine Clearance 83 ml/min; Glucose 480 mg/dl (70-99); Potassium 5.9 mmol/L (3.5-5.1); Sodium 134 mmol/L (135-145); Total Protein 8.4 g/dl (6.3-8.2); eGFR > 60.00
[2024-12-17] MEDS: NOVOLIN R 7 UNITS IV (01:42)
[2024-12-17 01:47] LABS: B-Hydroxybutyrate 5.06 mmol/L (0.02-0.27)
[2024-12-17] MEDS: NOVOLIN R INSULIN INFUSION 100 IV (01:52)
--- NOTE | 2024-12-17 02:02 | HPS.HSE ---
Family Physician
-
Family Physician: INTER[facility]IE[facility] UNKNOWN - PT NOT
Chief Complaint
-
Diabetic ketoacidosis
History of Present Illness
The patient is a 24-year-old woman with past medical history significant for type 1 diabetes mellitus with an insulin pump, recent admission in September for DKA, PCOS, endometriosis, vitiligo, PTSD, anxiety, who presented to the emergency department
secondary to nausea and vomiting that started this afternoon prior to arrival, associated with elevated glucose reads at home. She suspects this may be due to dehydration (she had a couple of drinks the night prior) and also received her Wegovy shot
yesterday as well, which she suspects may have contributed. She uses an insulin pump at home with manual insulin boluses including a recent bolus of 10 units, and noticed blood sugars to be high at home with no improvement with increasing dose of
insulin. Her fingerstick in the emergency department was 468. She denies fever, cough, shortness of breath, dysuria, chest pain, dizziness, vision changes. She has had similar episodes in the past. She has been drinking increased fluids at home.
In the emergency department her WBC is 12.6 VBG pH 7.27, sodium 134, potassium 5.9, CO2 8, glucose 480, total bilirubin 2.0, anion gap 21, qualitative hCG negative, urinalysis 3+ ketones, 4+ glucose, beta hydroxybutyrate 5.06
Medical History
Past Medical History
Past Medical History: Reports IDDM, Psychiatric (PTSD/anxiety) and Other (vitiligo, PCOS, endometriosis)
Past Surgical History: Reports None
Social History
Tobacco: Non-smoker
Alcohol: Occasional (1 drink per week)
Drug: None
Family History
Family History: Diabetes (type 2)
Allergies / Home Medications
Allergies reflects when Allergies were last updated in [facility].
Home Medications with original date entered in [facility]
Allergy/Medication List:
Allergies
Allergy/AdvReac Type Severity Reaction Status Date / Time
No Known Allergies Allergy Verified 09/26/24 00:16
Home Medications
Insulin Pump [Patient's Own Insulin Pump:] 0 ea SC . PROGRAMED Diabetes 07/22/19
levonorgestrel 0.15 mg-ethinyl estradiol 30 mcg tablets,3 mos pack(91) 1 tab PO DAILY Bitrh control 07/14/24
ondansetron 4 mg disintegrating tablet 4 mg PO Q8HPRN PRN nausea 09/01/24
semaglutide (weight loss) 1 mg/0.5 mL subcutaneous pen injector (Wegovy) 1 mg SC Q2W 09/01/24
Review of Systems
-
A 12 point ROS was completed and negative except as noted: Yes
Physical Exam
Vital Signs
Vital Signs
Temp Pulse Resp BP Pulse Ox
98.2 F 113 21 139/109 98
12/16/24 23:19 12/17/24 01:01 12/17/24 01:01 12/17/24 01:01 12/17/24 01:35
Physical Exam
General: Well Developed, Well Nourished, No Apparent Distress, Comfortable and Conversant
HEENT: NormoCephalic, Anicteric and Moist mucous membranes
Respiratory: Clear
Cardiac: S1/S2 and Regular Rhythm
GI: Soft, Non Tender and Non Distended
Musculoskeletal: No Clubbing, No Cyanosis and No Edema
Skin: Warm and Dry
Neuro: AO x 3 and No Motor Deficits
Psych: Calm
Laboratory Results
-
12/17/24 00:33
Laboratory Results
pH Cancelled 12/17/24 03:45
pCO2 Cancelled 12/17/24 03:45
pO2 Cancelled 12/17/24 03:45
HCO3 Cancelled 12/17/24 03:45
Total Bilirubin 2.0 mg/dl (0.2-1.3) H 12/17/24 00:33
AST 25 U/L (14-36) 12/17/24 00:33
ALT 17 U/L (0-35) 12/17/24 00:33
Alkaline Phosphatase 90 U/L (38-126) 12/17/24 00:33
Impression/Plan
-
IMPRESSION:
The patient is a 24-year-old woman with past medical history significant for type 1 diabetes mellitus with an insulin pump, recent admission in September for DKA, PCOS, endometriosis, vitiligo, PTSD, anxiety, who presented to the emergency department
secondary to nausea and vomiting that started this afternoon prior to arrival. She uses an insulin pump at home with manual insulin boluses including a recent bolus of 10 units, and noticed blood sugars to be high at home with no improvement with
increasing dose of insulin. Her fingerstick in the emergency department was 468. She denies fever, cough, shortness of breath, dysuria, chest pain, dizziness, vision changes. She has had similar episodes in the past. She has been drinking
increased fluids at home.
In the emergency department her WBC is 12.6 VBG pH 7.27, sodium 134, potassium 5.9, CO2 8, glucose 480, total bilirubin 2.0, anion gap 21, qualitative hCG negative, urinalysis 3+ ketones, 4+ glucose, beta hydroxybutyrate 5.06
# Diabetic ketoacidosis associated with nausea and vomiting, associated with anion gap metabolic acidosis, without evidence for acute infection at this time, possibly due to dehydration.
- Admit inpatient level of care to the intensive care unit due to the need for intensive treatment and monitoring
- Initiate DKA protocol with insulin drip and IV fluids
#K 5.9,
-follow potassium DKA protocol-monitor potassium Q2H for now
-IVF 250 mL per hour, follow protocol, insulin gtt initiated in ED and continue, close glucose and potassium monitoring
- Serial monitoring of glucose and BMP
#PTSD
#PCOS
#Vitiligo
#anxiety
#endometriosis
DVT proph-SCDs
Full Code
[2024-12-17 02:57] LABS: Glucose - Point of Care 258 mg/dl (70-99)
[2024-12-17 04:31] LABS: Blood Urea Nitrogen 13 mg/dl (7-17); Calcium 8.7 mg/dl (8.4-10.2); Carbon Dioxide 15 mmol/L (22-30); Chloride 112 mmol/L (98-107); Estimated Creatinine Clearance 93 ml/min; Glucose 251 mg/dl (70-99); Potassium 4.4 mmol/L (3.5-5.1); Sodium 138 mmol/L (135-145); eGFR > 60.00
[2024-12-17 05:00] LABS: Glucose - Point of Care 190 mg/dl (70-99)
--- NOTE | 2024-12-17 05:00 | PTCARENOTE ---
Pt Aox3, VSS, denies pain. ST on monitor, no edema, + pulses. Insulin infusing. Q1hr BG going forward. Pt offers no complaints or concerns, call lynne with in reach.
[2024-12-17] MEDS: D5/0.45%NSS with KCL 20 MEQ 1000 IV (05:18)
[2024-12-17 06:04] LABS: Glucose - Point of Care 178 mg/dl (70-99)
[2024-12-17 06:49] LABS: Blood Urea Nitrogen 12 mg/dl (7-17); Calcium 8.5 mg/dl (8.4-10.2); Carbon Dioxide 17 mmol/L (22-30); Chloride 113 mmol/L (98-107); Estimated Creatinine Clearance 105 ml/min; Glucose 198 mg/dl (70-99); Potassium 4.7 mmol/L (3.5-5.1); Sodium 139 mmol/L (135-145); eGFR > 60.00
[2024-12-17 07:02] LABS: Glucose - Point of Care 186 mg/dl (70-99)
--- NOTE | 2024-12-17 08:03 | W.PN.HOSP.TC ---
Addendum entered and electronically signed by Tania Stevens MD 12/17/24 13:40:
total DC time 40 min
Original Note:
Today's Communication/Plan
-
see A/P
Assessment / Plan
Assessment / Plan
HPI: 24-year-old woman with past medical history significant for type 1 diabetes mellitus with an insulin pump, recent admission in September for DKA, PCOS, endometriosis, vitiligo, PTSD, anxiety, who presented to the emergency department secondary to
nausea and vomiting that started in the afternoon prior to arrival, associated with elevated glucose reads at home. She suspects this may be due to dehydration (she had a couple of drinks the night prior) and also received her Wegovy shot the day
prior as well, which she suspects may have contributed. She uses an insulin pump at home with manual insulin boluses including
In the emergency department her WBC is 12.6 VBG pH 7.27, sodium 134, potassium 5.9, CO2 8, glucose 480, total bilirubin 2.0, anion gap 21, qualitative hCG negative, urinalysis 3+ ketones, 4+ glucose, beta hydroxybutyrate 5.06
A/P:
# Nausea and vomiting 2/2 Diabetic ketoacidosis/anion gap metabolic acidosis, possibly due to dehydration.
Initiated DKA protocol with insulin drip and IV fluids
switch insulin drip to SQ insulin when Anion gap closes x2
# Hyperkalemia K 5.9 POA, resolved
# constipation
Senokot-S and Miralax to start today
pt refuses suppository or enema currently
# PTSD
# PCOS
# Vitiligo
# anxiety
# endometriosis
DVT proph-SCDs
Full Code
Anticipated Discharge: Within 24 hours
Subjective/Interval History
-
Date of Service: December 17, 2024
Objective Data
-
Labs:
Laboratory Results
12/17/24 12/17/24 12/17/24
00:33 00:33 00:33
WBC 12.6 H
Hgb 13.5
Hct 39.3
Plt Count 347
HCO3
Sodium 134 L Cancelled
Potassium 5.9 H Cancelled
Chloride 105
Carbon Dioxide
BUN
Creatinine
Glucose
Calcium
Total Bilirubin
AST
ALT
Alkaline Phosphatase
12/17/24 12/17/24 12/17/24
00:33 00:33 00:33
WBC
Hgb
Hct
Plt Count
HCO3
Sodium
Potassium
Chloride Cancelled
Carbon Dioxide 8 L* Cancelled
BUN 15 Cancelled
Creatinine 0.9
Glucose
Calcium
Total Bilirubin
AST
ALT
Alkaline Phosphatase
12/17/24 12/17/24 12/17/24
00:33 00:33 00:33
WBC
Hgb
Hct
Plt Count
HCO3
Sodium
Potassium
Chloride
Carbon Dioxide
BUN
Creatinine Cancelled
Glucose 480 H* Cancelled
Calcium 9.8 Cancelled
Total Bilirubin 2.0 H
AST 25
ALT 17
Alkaline Phosphatase 90
12/17/24 12/17/24 12/17/24
01:00 01:45 03:45
WBC
Hgb
Hct
Plt Count
HCO3 Cancelled Cancelled Cancelled
Sodium Cancelled
Potassium Cancelled
Chloride Cancelled
Carbon Dioxide Cancelled
BUN Cancelled
Creatinine Cancelled
Glucose Cancelled
Calcium Cancelled
Total Bilirubin
AST
ALT
Alkaline Phosphatase
12/17/24 12/17/24 12/17/24
03:49 06:05 06:05
WBC
Hgb
Hct
Plt Count
HCO3
Sodium 138 139
Potassium 4.4 D 4.7 Cancelled
Chloride 112 H 113 H
Carbon Dioxide 15 L 17 L
BUN 13 12
Creatinine 0.8 0.7
Glucose 251 H 198 H
Calcium 8.7 8.5
Total Bilirubin
AST
ALT
Alkaline Phosphatase
12/17/24 12/17/24 12/17/24
08:02 10:00 12:00
WBC
Hgb
Hct
Plt Count
HCO3
Sodium Pending Pending
Potassium Pending Cancelled Pending
Chloride Pending Pending
Carbon Dioxide Pending Pending
BUN Pending Pending
Creatinine Pending Pending
Glucose Pending Pending
Calcium Pending Pending
Total Bilirubin
AST
ALT
Alkaline Phosphatase
12/17/24 12/17/24 12/17/24
14:00 16:00 18:00
WBC
Hgb
Hct
Plt Count
HCO3
Sodium Pending
Potassium Cancelled Pending Cancelled
Chloride Pending
Carbon Dioxide Pending
BUN Pending
Creatinine Pending
Glucose Pending
Calcium Pending
Total Bilirubin
AST
ALT
Alkaline Phosphatase
12/17/24
20:00
WBC
Hgb
Hct
Plt Count
HCO3
Sodium Pending
Potassium Pending
Chloride Pending
Carbon Dioxide Pending
BUN Pending
Creatinine Pending
Glucose Pending
Calcium Pending
Total Bilirubin
AST
ALT
Alkaline Phosphatase
Vital Signs:
Vital Signs
Temp Pulse Resp BP Pulse Ox
37.0 C 103 18 124/82 96
12/17/24 07:00 12/17/24 06:30 12/17/24 06:30 12/17/24 06:00 12/17/24 07:48
I&O
12/16/24 12/17/24 12/18/24
06:59 06:59 06:59
Intake Total 129 / 129
Balance 129 / 129
Review of Systems
-
All other systems: Reviewed and negative
Constitutional: Reports No Symptoms
Physical Exam
-
General: Well Developed, Well Nourished, No Apparent Distress, Comfortable and Conversant
HEENT: Normocephalic, Atraumatic and Moist Mucous Membranes; Negative Oxygen
Respiratory: Clear to Auscultation; Negative Non Labored Respirations or Accessory Resp Muscle Use
Cardiac: Regular Rhythm, S1/S2 and Tachycardic
GI: Soft, Nontender and Nondistended
Neuro: Awake, Alert, Oriented, AO x 3, No Motor Deficits and Nonfocal/Grossly Intact
Psych: Calm and Intact Judgement/Insight
Data Reviewed
-
Labs: Labs Reviewed by me and Discussed with Patient
[2024-12-17 08:09] LABS: Glucose - Point of Care 182 mg/dl (70-99)
[2024-12-17 08:43] LABS: Blood Urea Nitrogen 11 mg/dl (7-17); Calcium 8.5 mg/dl (8.4-10.2); Carbon Dioxide 19 mmol/L (22-30); Chloride 113 mmol/L (98-107); Estimated Creatinine Clearance 105 ml/min; Glucose 187 mg/dl (70-99); Sodium 135 mmol/L (135-145); eGFR > 60.00
[2024-12-17] MEDS: SENOKOT-S 1 TABLET PO (09:27)
[2024-12-17] MEDS: MIRALAX 17 GRAMS PO (09:27)
[2024-12-17 09:28] LABS: Glucose - Point of Care 168 mg/dl (70-99)
[2024-12-17 10:11] LABS: Glycohemoglobin (HgbA1c) 7.8 % (4.0-5.6)
[2024-12-17] MEDS: PT'S OWN INSULIN PUMP - HumaLOG 1.5 UNIT SC ×2 (10:11→12:56)
[2024-12-17] MEDS: NON-FORMULARY ITEM 1 TABLET PO (10:11)
--- NOTE | 2024-12-17 10:22 | CM ---
Met with patient at bedside
Pharmacy verified: [facility] @ [address] [place] [address]
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
DME: Insulin Pump; Dexcom continuous glucose monitor
Mother will transport home
Plan: Discharge to home today; no needs
--- NOTE | 2024-12-17 10:27 | CON.INTV ---
Consultation
Consultation Request
Date/Time Consultation Requested: 12/17/2024437
Date/Time Consultation Performed: 12/17/2024821
Requesting Provider: Dr. Daniels
Performing Provider: Dr. Muniz
Reason for Consultation: DKA
Medical History
-
Chief Complaint: High blood sugar + vomiting
History of Present Illness:
24-year-old female with a past medical history of DM type I, vitiligo, PCOS, history of endometriosis and PTSD/anxiety who presents with hyperglycemia. Patient has a Dexcom G7 continuous glucose monitoring system and an insulin pump (OmniPod), and
thinks that she was dehydrated after having a few alcoholic beverages the night prior to arrival and she also took her Wegovy 1 day prior to arrival which may have contributed to her abdominal discomfort, nausea and vomiting. Her blood sugars were
elevated at home at 462 and she has been trying to increase her insulin but her sugars remained elevated. Blood glucose on chemistry here was 251 with initial POCT BG 468. Urine ketones is +3 and beta-hydroxybutyrate was elevated at 5.06, and
potassium level 5.9 with serum bicarbonate level 8 and anion gap 21. Patient was started on insulin drip and transferred to the ICU for DKA. S[employer]ing Machine Operator Helper services consulted for additional management/recommendations.
I saw the pt this AM. She is doing well. HR 101, breathing comfortably on room air, saturating 97%. She feels well, denying abdominal pain, nausea, chest pain, SOB, BLAKELY, fevers or chills. She did spike a fever overnight to 100.5 �F.
PMHx: DM type I, vitiligo, PCOS, PTSD/anxiety, endometriosis
PHHx: Noncontributory
Past Medical History
Past Medical History: Other (Above as per HPI)
Past Surgical History: Other (Above as per HPI)
Social History
Tobacco: Non-smoker
Alcohol: Occasional (Social)
Drug: None
Family History
Family History: Diabetes (Type II)
Allergies / Home Medications
Allergies
Allergy/AdvReac Type Severity Reaction Status Date / Time
No Known Allergies Allergy Verified 09/26/24 00:16
Home Medications
�Medication �Instructions �Recorded �Confirmed �Last Taken �Type
Insulin Pump [Patient's Own 0 ea SC . PROGRAMED Diabetes 07/22/19 12/17/24 Unknown History
Insulin Pump:]
levonorgestrel 0.15 mg-ethinyl 1 tab PO DAILY Bitrh control 07/14/24 12/17/24 12/16/24 History
estradiol 30 mcg tablets,3 mos
pack(91)
ondansetron 4 mg disintegrating 4 mg PO Q8HPRN PRN nausea 09/01/24 12/17/24 Unknown History
tablet
semaglutide (weight loss) 1 mg/0.5 1 mg SC TH 09/01/24 12/17/24 12/14/24 History
mL subcutaneous pen injector
(Wegovy)
acetaminophen 650 mg 650 mg PO Q8H PRN pain 12/17/24 12/17/24 Unknown History
tablet,extended release
Review of Systems
-
History Source: Patient
All other systems: Negative unless noted
Vitals / Labs / Diagnostic Testing
Vital Signs
Temp Pulse Resp BP Pulse Ox
98.6 F 103 18 124/82 96
12/17/24 07:00 12/17/24 06:30 12/17/24 06:30 12/17/24 06:00 12/17/24 07:48
Lab Data
12/17/24 20:00
Laboratory Results
12/17/24 12/17/24 12/17/24
01:00 01:45 03:45
pH Cancelled Cancelled Cancelled
pCO2 Cancelled Cancelled Cancelled
pO2 Cancelled Cancelled Cancelled
HCO3 Cancelled Cancelled Cancelled
O2 Delivery Level Cancelled Cancelled Cancelled
Diagnostic Testing:
Physical Exam
-
HEENT: Normocephalic and Anicteric
Cardiovascular: S1/S2 and Peripheral Edema (negative)
Respiratory: Clear, Wheeze (negative), Rales (negative), Rhonchi (negative) and Non-Labored Respirations
GI: Soft, Non Distended, Non Tender and Normal Bowel Sounds
Neurology: AO x 3 and Tremors (negative)
Skin: Warm, Dry and Other (Patches of hypopigmentation across body due to vitiligo)
General: Respiratory Distress (negative), Comfortable, Fever (negative) and Chills (negative)
Assessment
-
Assessment: 24-year-old female with a past medical history of DM type I, vitiligo, PCOS, history of endometriosis and PTSD/anxiety who presents with hyperglycemia. Patient has a Dexcom G7 continuous glucose monitoring system and an insulin pump
(OmniPod), and thinks that she was dehydrated after having a few alcoholic beverages the night prior to arrival and she also took her Wegovy 1 day prior to arrival which may have contributed to her abdominal discomfort, nausea and vomiting. Her
blood sugars were elevated at home at 462 and she has been trying to increase her insulin but her sugars remained elevated. Blood glucose on chemistry here was 251 with initial POCT BG 468. Urine ketones is +3 and beta-hydroxybutyrate was elevated
at 5.06, and potassium level 5.9 with serum bicarbonate level 8 and anion gap 21. Patient was started on insulin drip and transferred to the ICU for DKA. S[employer]ing Machine Operator Helper services consulted for additional management/recommendations.
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
Impression:
#DM type I complicated by DKA
#Metabolic acidosis with increased anion gap due to above possibly with a component of starvation ketosis
#Nausea/vomiting due to DKA
#Obesity on Wegovy
Plan:
- This morning, serum bicarbonate level is >18 and her anion gap has been closed since BMP overnight at 3:49 AM
- Insulin drip turned off and patient was restarted on her insulin pump
- Patient's blood glucose to be monitored via her Dexcom G7 CGM
- Goal BG >100 and <180
- Repeat blood work with BMP this afternoon and as long as anion gap remains closed with serum bicarbonate level of 18 +/-1 then she is stable to be discharged home with outpatient blood work by her PCP to assure that her acidosis has improved
- Continue antiemetics prn
- Maintain SpO2 >90-94%
- Maintain MAP>65
- Replete electrolytes with K>4, Mg>2
- Maintain euglycemia with goal BG 140-180
- Trend H/H and transfuse if needed to keep Hb>7g/dL; keep plt>20k, unless there is concern for bleeding then keep plt>50k
- prn nebulized bronchodilators - not currently bronchospastic
- Incentive spirometer encouraged 10x per hour for at least 4 hrs a day
- DVT ppx
Patient is likely being discharged home today. Soldering Machine Operator Helper services will continue to follow along while she remains in the ICU. Once decision made to discharge home then we will sign off at that time. Thank you for allowing us to be involved in
the care of this patient, and please call back if there are any additional questions or concerns.
Total time spent today was 84 minutes for this encounter. Time includes reviewing laboratory test/imaging results, reviewing pertinent medical records, obtaining and reviewing medical history, performing an appropriate exam, ordering medications,
tests and procedures. Time also includes documentation of this encounter, coordinating patient care and communicating with other healthcare professionals. Total time does not include separately billed tests performed on this date of service.
[2024-12-17] MEDS: PT'S OWN INSULIN PUMP - HumaLOG 7.8 UNIT SC (11:35)
[2024-12-17 11:44] LABS: Glucose - Point of Care 135 mg/dl (70-99)
[2024-12-17 12:50] LABS: Hematocrit 34.4 % (37.0-47.0); Hemoglobin 11.8 g/dL (12.0-16.0); Mean Corp Hgb Conc. 34.3 g/dL (33.0-37.0); Mean Corpuscular Volume 87.5 fL (81.0-99.0); Mean Platelet Volume 9.3 fL (7.4-10.4); Platelet Count 279 10^3/uL (130-400); Red Blood Cell Count 3.93 10^6/uL (4.20-5.40); Red Cell Dist. Width 12.4 % (11.5-14.5); White Blood Cell Count 8.9 10^3/uL (4.8-10.8)
[2024-12-17 13:03] LABS: Blood Urea Nitrogen 9 mg/dl (7-17); Carbon Dioxide 17 mmol/L (22-30); Chloride 112 mmol/L (98-107); Estimated Creatinine Clearance 92 ml/min; Glucose 189 mg/dl (70-99); Potassium 4.4 mmol/L (3.5-5.1); Sodium 137 mmol/L (135-145); eGFR > 60.00
--- NOTE | 2024-12-17 13:31 | W.DCSUMMARY ---
Discharge Summary
Discharge Data
Date of Admission: 12/17/24
Date of Discharge: 12/17/24
-
Pending Results: No
Hospital Course
Principal Diagnosis:
Diabetes ketoacidosis in setting of type 1 diabetes mellitus
Chronic Diagnoses:�
# PTSD
# Polycystic ovary syndrome
# Vitiligo
# anxiety
# endometriosis
Consultations:�
Boat Ride Operator
Procedures:�
None
Clinical course:�
This is a 24-year-old woman with past medical history as stated above, who presented with nausea vomiting and elevated blood glucose reading at home.
Problem 1:
Nausea and vomiting 2/2 diabetes ketoacidosis/anion gap metabolic acidosis, possibly due to dehydration.
She was initiated with DKA protocol with insulin drip and IV fluids. This was transitioned back to her insulin pump following closure of anion gap x 2.
She can continue with her prior to admission insulin pump.
As for the rest of her medical problems, they were stable during her hospital stay.
Discharge Plan
-
Patient Disposition: Home (Routine Discharge)
Discharge Diagnosis/Procedures: Nausea and vomiting due to diabetes ketoacidosis/anion gap metabolic acidosis, possibly due to dehydration.
Condition: Fair
Diet: As tolerated and Low Cholesterol
Activity: As tolerated
Driving Restrictions: As prior to admission
Blood Work: BMP with your PCP
Referrals:
Paras Ybarra MD [Family Provider, Family Practice] - in less than 1 week
Prescriptions:
Continued
Insulin Pump [Patient's Own Insulin Pump:] 1 UNITS Pump.Resvr
0 ea SC . PROGRAMED
Rx Instructions:
Insulin Lispro
levonorgestrel-ethinyl estrad 0.15 mg-30 mcg (91) tablets,dose pack,3 month
1 tab PO DAILY
Wegovy 1 mg/0.5 mL Pen Injector
1 mg SC TH
ondansetron 4 mg Tablet,Disintegrating
4 mg PO Q8HPRN PRN (Reason: nausea)
acetaminophen 650 mg Tablet Extended Release
650 mg PO Q8H PRN (Reason: pain)
Discharge Orders:
Discharge Patient (As Directed); Ordered 12/17/24
Ordered By: Tania Stevens
Discharge Date and Time
Print Language: MOSOTHO
== END 2024-12-17 15:49 | disposition home or self-care (01) | DRG 639 ==
LOC: ICU 03:23
PROVIDERS: ADMITTING PHYSICIAN Internal Medicine; ATTENDING PHYSICIAN Internal Medicine; CONSULT PHYSICIAN Internal Medicine Critical Care Medicine; EMERGENCY PHYSICIAN Student in an Organized Health Care Education/Training Program; FAMILY PHYSICIAN Family Medicine
DX: E10.10 Type 1 diabetes mellitus with ketoacidosis without coma (principal); Z79.4 Long term (current) use of insulin; F43.10 Post-traumatic stress disorder, unspecified; E28.2 Polycystic ovarian syndrome; L80 Vitiligo; F41.9 Anxiety disorder, unspecified; N80.9 Endometriosis, unspecified; E66.9 Obesity, unspecified; Z68.29 Body mass index [BMI] 29.0-29.9, adult; F90.9 Attention-deficit hyperactivity disorder, unspecified type; Z96.41 Presence of insulin pump (external) (internal)
CPT/HCPCS: 80048; 80053; 81003; 82010; 82805; 82962; 83036; 84703; 85025; 85027; 96361; 96365; 96366; 99291